=== PATIENT | male | born 1955 ===

== ENCOUNTER 2017-08-18 14:32 | Inpatient (IN) | payer MEDICAID ==
[2017-08-18 14:46] VITALS: BMI 24.3
[2017-08-18 15:39] LABS: BASO # 0.1 K/uL (0.0-0.2); BASO % 0.5 % (0.0-2.0); EOS # 0.1 K/uL (0.0-0.7); EOS % 0.7 % (0.0-4.0); HEMOGLOBIN 10.4 g/dL (12.0-18.0); LYMPH # 0.7 K/uL (1.0-4.3); MEAN CELL VOLUME 88.4 fL (80.0-94.0); MEAN CORPUSCULAR HEMOGLOBIN 30.1 pg (27.0-31.0); MEAN PLATELET VOLUME 7.1 fL (7.2-11.7); MONO # 0.6 K/uL (0.0-0.8); MONO % 5.4 % (0.0-10.0); NEUT % 87.4 % (50.0-75.0); RBC 3.47 Mil/uL (4.40-5.90); RED CELL DISTRIBUTION WIDTH 16.2 % (11.5-14.5)
[2017-08-18 15:40] LABS: WHITE BLOOD COUNT 11.5 K/uL (4.8-10.8)
[2017-08-18 15:41] LABS: PLATELET COUNT 348 K/uL (130-400)
[2017-08-18 15:48] LABS: INR 1.4; PROTHROMBIN TIME 15.4 SECONDS (9.7-12.2)
[2017-08-18 15:55] LABS: ALB/GLOB RATIO 1.3 (1.0-2.1); ALBUMIN 3.7 g/dL (3.5-5.0); ALT/SGPT 38 U/L (21-72); AST/SGOT 35 U/L (17-59); BLOOD UREA NITROGEN 15 mg/dL (9-20); CALCIUM 8.8 mg/dl (8.6-10.4); GFR AFRICAN-AMERICAN > 60; GFR NON-AFRICAN AMERICAN > 60
[2017-08-18] MEDS ORDERED: Sodium Chloride 0.9% 1,000 ML IV ONE (15:56)
--- NOTE | 2017-08-18 15:58 | RAD ---
HISTORY: SOB COMPARISON: Chest x-ray performed 05/05/13 TECHNIQUE: Chest, one view. FINDINGS: Examination limited by habitus and hypoinflation. LUNGS: Mild pulmonary venous congestion. No focal consolidation. Please note that chest x-ray has limited sensitivity for the detection of pulmonary masses. PLEURA: No significant pleural effusion identified. No definite pneumothorax . CARDIOVASCULAR: Median sternotomy wires with evidence of CABG. Heart size appears within normal limits. Dual lead left-sided AICD. OSSEOUS STRUCTURES: Osseous demineralization. Degenerative changes. VISUALIZED UPPER ABDOMEN: Unremarkable. OTHER FINDINGS: None. IMPRESSION: Mild pulmonary venous congestion. Hypoinflation. Left-sided AICD.
[2017-08-18 16:05] LABS: B-TYPE NATRIURETIC PEPTIDE 1570 pg/mL (0-900)
[2017-08-18] MEDS ORDERED: Sodium Chloride 0.9% 1,000 ML ONE (16:15)
[2017-08-18 16:20] LABS: ANISOCYTOSIS SLIGHT; EOSINOPHIL 1 % (0-4); HYPOCHROMIC SLIGHT; LYMPHOCYTE 6 % (20-40); MONOCYTE 6 % (0-10); NEUTROPHIL 87 % (50-75); PLATELET ESTIMATE NORMAL (NORMAL); POIKILOCYTOSIS SLIGHT; TOTAL CELLS COUNTED 100
[2017-08-18 16:21] LABS: BURR CELLS SLIGHT
--- NOTE | 2017-08-18 16:32 | C.PDOC ---
History Of Present Illness 62 y/o male presents to ED c/o parasthesia to both hands and feet for the last 2 days. Pt is s/p defibrillator placement at [facility] 10 days ago. Pt reports decrease in appetite, states last BM was 3 days ago. Notes taking Percocet for his chest wall discomfort. Denies headache, dizziness, fever, or any other complaints at this time. Time Seen by Provider: 08/18/17 14:43 Chief Complaint (Nursing): Weakness/Neurological Deficit History Per: Patient History/Exam Limitations: no limitations Past Medical History Reviewed: Historical Data, Nursing Documentation, Vital Signs Vital Signs: Last Vital Signs Temp 97.4 F L 08/18/17 14:39 Pulse 64 08/18/17 14:53 Resp 62 H 08/18/17 16:08 BP 112/56 L 08/18/17 16:08 Pulse Ox 100 08/18/17 17:37 - Medical History PMH: Benign Prostatic Hyperplasia, Diabetes, HTN, Hypercholesterolemia Family History: States: Unknown Family Hx - Social History Hx Tobacco Use: No Hx Alcohol Use: No Hx Substance Use: No - Immunization History Hx Tetanus Toxoid Vaccination: No Hx Influenza Vaccination: Yes Hx Pneumococcal Vaccination: No Review Of Systems Except As Marked, All Systems Reviewed And Found Negative. Constitutional: Negative for: Fever, Chills Cardiovascular: Negative for: Chest Pain, Palpitations Respiratory: Negative for: Cough, Shortness of Breath Gastrointestinal: Negative for: Nausea, Vomiting, Abdominal Pain, Diarrhea Genitourinary: Negative for: Dysuria, Frequency, Hematuria Neurological: Positive for: Other (parasthesia to both hands and feet). Negative for: Headache, Dizziness Physical Exam - Physical Exam Appears: Non-toxic, No Acute Distress Skin: Warm, Dry Head: Normacephalic Eye(s): bilateral: Normal Inspection Oral Mucosa: Moist Neck: Normal ROM, Supple Chest: Symmetrical, No Deformity, No Tenderness, No Ecchymosis, Other (healing wound to left upper chest wall, cardiac pacer in place, no fluctuance) Cardiovascular: Rhythm Regular Respiratory: Normal Breath Sounds, No Accessory Muscle Use, No Rales, No Rhonchi , No Wheezing Gastrointestinal/Abdominal: Soft, No Tenderness Extremity: Normal ROM Neurological/Psych: Oriented x3, Normal Speech, Normal Cognition ED Course And Treatment - Laboratory Results Result Diagrams: 08/18/17 15:35 02/23/18 17:02 Lab Interpretation: Abnormal (mild K+ elev) ECG: Interpreted By Me ECG Rhythm: Sinus Rhythm ECG Interpretation: Normal Rate From EC O2 Sat by Pulse Oximetry: 100 Pulse Ox Interpretation: Normal - Radiology CXR: Interpreted by Me CXR Interpretation: Yes: No Acute Disease, Other (good pacer/defib placement, no enlarged cardiac silhouette to suspect pericardial effusion) Progress Note: IV NS. 1630: repeat CMP ordered for inconsistent lab tests. suspect hemolyzed. Reevaluation Time: 16:45 Reassessment Condition: Improved - Physician Consult Information Outcome Of Conversation: 1500: d/w Dr. Forbes- recommends adm and will consult. 1645: d/w Dr. Rafiq Grover- PMD- ok to admit Medical Decision Making Medical Decision Making: mild hyponatremia no neurological defect but may be causing mild ataxia vs weakness of legs. consider poor PO intake and diuretics as causative no sig EKG changes, will await repeat CMP prior to treatment. LOW susp of symptomatic pericardial effusion, Dr. Forbes recommends routine card echo 1730: only mild hyponatremia on repeat CMP, Na improving. Defer treatment of hyperkalemia for normal EKG and only slightly elev K+ Follow as inpt. Disposition Doctor Will See Patient In The: Hospital Counseled Patient/Family Regarding: Studies Performed, Diagnosis - Disposition Disposition: HOSPITALIZED Disposition Time: 16:47 Condition: GOOD - Clinical Impression Clinical Impression: Muscle weakness, Hyponatremia, Hyperkalemia - Scribe Statement The provider has reviewed the documentation as recorded by the Logan Grover All medical record entries made by the Logan were at my direction and personally dictated by me. I have reviewed the chart and agree that the record accurately reflects my personal performance of the history, physical exam, medical decision making, and the department course for this patient. I have also personally directed, reviewed, and agree with the discharge instructions and disposition.
[2017-08-18 17:09] LABS: SQUAMOUS EPITHIAL < 1 /hpf (0-5); URINE BILIRUBIN NEGATIVE (NEGATIVE); URINE BLOOD NEGATIVE (NEGATIVE); URINE CLARITY Clear (Clear); URINE COLOR Yellow (YELLOW); URINE GLUCOSE (UA) NORMAL (Normal); URINE LEUKOCYTE ESTERASE NEG Leu/uL (Negative); URINE NITRATE NEGATIVE (NEGATIVE); URINE PROTEIN NEGATIVE (NEGATIVE); URINE UROBILINOGEN NORMAL mg/dL (0.2-1.0)
[2017-08-18 17:25] LABS: ALB/GLOB RATIO 1.2 (1.0-2.1); ALBUMIN 3.3 g/dL (3.5-5.0); ALT/SGPT 37 U/L (21-72); AST/SGOT 34 U/L (17-59); BLOOD UREA NITROGEN 14 mg/dL (9-20); CALCIUM 8.3 mg/dl (8.6-10.4); GFR AFRICAN-AMERICAN > 60; GFR NON-AFRICAN AMERICAN > 60
[2017-08-18] MEDS: Ranolazine 500 mg Extended Release Tablets PO SCH (20:32)
--- NOTE | 2017-08-18 21:50 | CT ---
EXAM: CT Abdomen and Pelvis Without Intravenous Contrast EXAM DATE/TIME: 08/18/2017 8:12 PM CLINICAL HISTORY: 62 years old, male; Pain; Abdominal pain; Generalized; Additional info: Abd pain /black stools TECHNIQUE: Axial computed tomography images of the abdomen and pelvis without intravenous contrast. All CT scans at this facility use one or more dose reduction techniques, viz.: automated exposure control; ma/kV adjustment per patient size (including targeted exams where dose is matched to indication; i.e. head); or iterative reconstruction technique. Coronal and sagittal reformatted images were created and reviewed. COMPARISON: There are no prior studies for comparison. FINDINGS: Artifacts: Streak artifact degrades image quality.Motion artifact degrades image quality. Lower thorax: The heart is mildly enlarged. There are coronary artery calcifications and/or stents.There is streak artifact from pacemaker leads. There is dependent atelectasis and scarring at the lung bases. There is mild distal esophageal wall thickening. ABDOMEN: Liver: unremarkable Gallbladder and bile ducts: unremarkable Pancreas: Pancreas is mildly atrophic. Spleen: unremarkable Adrenals: unremarkable Kidneys and ureters: There there is small bilateral nonobstructing renal stones. There is bilateral pelvocaliectasis and ureterectasis. Stomach and bowel: Stomach is partially distended with an air-fluid level. Rotation is normal. There is no small bowel obstruction. Ileocecal region is unremarkable. Appendix and terminal ileum are unremarkable.Moderate stool in the colon. Appendix: See stomach and bowel PELVIS: Bladder: Bladder is markedly distended. Normal the bladder extends above the level of the umbilicus. There is a small amount of air in the bladder Reproductive: Prostate is enlarged. Seminal vesicles are unremarkable. ABDOMEN and PELVIS: Intraperitoneal space: There is no free air or free fluid. Bones/joints: Median sternotomy There are anterior rib fractures bilaterally. Soft tissues: There is a very small fat containing umbilical hernia. There is a 2 x 2.2 by 4 cm cystic lesion in the left upper quadrant. Vasculature: There are calcified phleboliths. There are vascular calcifications. Lymph nodes: unremarkable IMPRESSION: Cardiomegaly, atherosclerotic disease and pacemaker;markedly distended bladder, bilateral hydroureteronephrosis most likely due to bladder distention; minimal air in the bladder infection versus iatrogenic; left upper quadrant mesenteric cyst; no acute bowel abnormality Additional nonemergent findings as described above.
[2017-08-18] MEDS: (Novolin R) Insulin Human Regular 100 units/ml vial SC SCH (22:41)
[2017-08-18] MEDS: (Lantus) Insulin Glargine, Recombinant SC SCH ×2 (22:47→22:49)
--- NOTE | 2017-08-19 05:35 | HP ---
HISTORY OF PRESENT ILLNESS: This is a 62-year-old [place] male, came to the emergency room with history of paresthesias to both hands and feet for the last two days. The patient has recently implanted defibrillator at [facility] about 10 days ago. The patient reports decrease in appetite and state last bowel movement was 3 days ago. The patient is taking Percocet for his chest pain. The patient denies having headache, dizziness, fever, or any other complaints. The patient also has probable no urine for the last 24 hours. REVIEW OF SYSTEMS: CARDIOVASCULAR: Negative for chest pain or shortness of breath. RESPIRATORY: Negative for shortness of breath. GI: The patient has nausea and possible vomiting in the morning prior to the admission, constipation, and abdominal discomfort. GAME ADVISOR: No focal neurological complaints offered. The patient has paresthesias of both hands and feet. : Urinary complaints, possible reduced urine output. GENERAL: No history of back pain. No fever. PSYCHIATRIC: The patient is stable. All other system is negative. PAST MEDICAL HISTORY: History of benign prostatic hyperplasia, diabetes, hypertension, hypercholesterolemia. The patient has severe coronary artery disease. The patient has multiple angiogram done. The patient also has history of cardiac arrest and has been revived. The patient recently has stent catheterization at [facility]. Later on, the patient has implantation of ICD. The patient has been to multiple hospitals like [facility], and [facility], and [facility] for the similar problem with heart. MEDICATIONS: The patient has to take nitroglycerin constantly because of his chest pain off and on. Basically, the patient has severe coronary artery disease with low ejection fraction. The patient's medications are reviewed by me. FAMILY HISTORY: No known inherited disease. ALLERGIES: NO KNOWN ALLERGIES. SOCIAL HISTORY: Nonsmoker. Nonalcoholic. No IVDA. PHYSICAL EXAMINATION: GENERAL: This is a 62-year-old [place] male awake, alert with abdominal discomfort. VITAL SIGNS: Temperature 97.4, pulse 64, respirations , blood pressure 112/56 mmHg, pulse oximetry is 100% at room air. HEENT: Normal. JVP is flat. Carotids no bruits. LUNGS: No rales. No wheezing. HEART: S1 and S2 normal. No gallop. No murmur. ABDOMEN: Soft and nontender. No organomegaly. GAME ADVISOR: No focal neurological deficit. No edema of the legs. LABORATORY DATA: On admission, EKG is grossly within normal limits. Dr. Forbes was consulted by the Emergency Room for this problem, and he advised the patient to be admitted so I was notified. I agreed with Dr. Forbes's decision to admit the patient. The patient has mild hyponatremia and hyperkalemia. The patient is also getting unsteady gait because of electrolyte imbalance. IMPRESSION: Muscle weakness, hyponatremia, hyperkalemia. Severe coronary artery disease with multiple manipulations. Stent and the patient also has ICD implanted. PLAN: The patient will be admitted to telemetry bed. We will get consult with Dr. Forbes. We will continue all the medications. Other workup as needed. Sheyla Grover MD
--- NOTE | 2017-08-19 08:59 | CP.PCM.CON ---
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 The patient is primarily Abdulaziz speaking, thus [employer] Abdulaziz rip sawyer #[id number] was used to assist with history and physical examination. The patient states that he underwent ICD placement at [facility] 10 days prior to arrival and was discharged with new medication, Brilinta 90mg tablets. Two to three days after returning home he began to note dizziness with exertion, unsteady gain, had dark black bowel movements and needed to use excessive force to urinate. Regarding his bowel habits, he passed one formed, dark black bowel movement daily for several days prior to admission. Denies any bright red hematochezia/hematemesis/hematuria or bleeding from his recent surgical site. Has no palpitations, nausea, vomiting, abdominal pain, NSAID use, heartburn. No prior endoscopic evaluations. PMHx: See HPI PSHx: CABGx1 2001, Coronary angioplasty 2004, PCI + CHANO multiple times previously, most recent 1 year ago, ICD insertion 10 days ago FHx: Discussed with patient and denies any significant family history Social: Denies tobacco, EtOH or illicit drug use Endo: No prior endoscopic procedures 12 system ROS performed and negative except where stated above. Past Patient History - Past Social History Smoking Status: Never Smoked - CARDIAC Hx Hypercholesterolemia: Yes Hx Hypertension: Yes - PSYCHIATRIC Hx Substance Use: No - SURGICAL HISTORY Hx Vascular Surgery: Yes (AICD) - ANESTHESIA Hx Anesthesia: Yes Hx Anesthesia Reactions: No Hx Malignant Hyperthermia: No Meds Allergies/Adverse Reactions: Allergies Allergy/AdvReac Type Severity Reaction Status Date / Time No Known Allergies Allergy Unverified 05/05/13 10:28 - Medications Medications: Current Medications Amiodarone HCl (Cordarone) 200 mg PO Q12 [facility] Last Admin: 08/18/17 22:53 Dose: 200 mg Carvedilol (Coreg) 12.5 mg PO Q12 [facility] Last Admin: 08/18/17 22:53 Dose: 12.5 mg Enalapril Maleate (Vasotec) 10 mg PO DAILY [facility] Famotidine (Pepcid) 20 mg PO DAILY [facility] Finasteride (Proscar) 5 mg PO DAILY [facility] Gabapentin (Neurontin) 100 mg PO BID [facility] Last Admin: 08/18/17 20:32 Dose: 100 mg Insulin Glargine (Lantus) 12 unit SC [facility] Last Admin: 08/18/17 22:47 Dose: Not Given Insulin Glargine (Lantus) 40 unit SC [facility] Last Admin: 08/18/17 22:49 Dose: Not Given Insulin Human Regular (Novolin R) 0 unit SC [facility] PRN Reason: Protocol Last Admin: 08/18/17 22:41 Dose: Not Given Nitroglycerin (Nitrostat Sl Tab) 0.4 mg SL Q4H PRN PRN Reason: chest pain Ondansetron HCl (Zofran Inj) 4 mg IVP Q6 PRN PRN Reason: Nausea/Vomiting Last Admin: 08/18/17 21:41 Dose: 4 mg Ranolazine (Ranexa) 1,000 mg PO BID [facility] Last Admin: 08/18/17 20:32 Dose: 1,000 mg Rosuvastatin Calcium (Crestor) 40 mg PO [facility] Sitagliptin Phosphate (Januvia) 50 mg PO BID [facility] Spironolactone (Aldactone) 25 mg PO BID [facility] Last Admin: 08/18/17 20:32 Dose: 25 mg Tamsulosin HCl (Flomax) 0.4 mg PO DAILY [facility] Physical Exam - Constitutional Appears: Non-toxic, No Acute Distress - Eye Exam Eye Exam: EOMI, PERRL - ENT Exam ENT Exam: Mucous Membranes Moist - Respiratory Exam Respiratory Exam: Clear to Auscultation Bilateral. absent: Rales, Rhonchi, Wheezes - Cardiovascular Exam Cardiovascular Exam: Bradycardia, +S1, +S2 - GI/Abdominal Exam GI & Abdominal Exam: Distended, Firm (suprapubic), Normal Bowel Sounds, Soft. absent: Hernia, Mass, Organomegaly, Rigid, Tenderness - Rectal Exam Additional comments: formed brown stool, no blood, no hemorrhoids - Extremities Exam Extremities exam: Positive for: normal inspection. Negative for: pedal edema - Neurological Exam Neurological exam: Alert, Oriented x3 - Psychiatric Exam Psychiatric exam: Normal Affect, Normal Mood - Skin Skin Exam: Dry, Warm Results - Vital Signs Recent Vital Signs: Last Vital Signs Temp 98.1 F 08/19/17 04:00 Pulse 60 08/19/17 07:55 Resp 18 08/19/17 07:55 BP 127/66 08/19/17 07:55 Pulse Ox 99 08/19/17 07:55 - Labs Result Diagrams: 08/18/17 15:35 08/18/17 17:02 Labs: Laboratory Results - last 24 hr 08/18/17 08/18/17 08/18/17 14:47 15:35 15:35 WBC 11.5 H D RBC 3.47 L Hgb 10.4 L Hct 30.7 L MCV 88.4 MCH 30.1 MCHC 34.0 RDW 16.2 H Plt Count 348 D MPV 7.1 L Neut % (Auto) 87.4 H Lymph % (Auto) 6.0 L Cedar % (Auto) 5.4 Eos % (Auto) 0.7 Baso % (Auto) 0.5 Neut # (Auto) 10.0 H Lymph # (Auto) 0.7 L Cedar # (Auto) 0.6 Eos # (Auto) 0.1 Baso # (Auto) 0.1 Neutrophils % (Manual) 87 H Lymphocytes % (Manual) 6 L Monocytes % (Manual) 6 Eosinophils % (Manual) 1 Platelet Estimate Normal Hypochromasia (manual) Slight Poikilocytosis (manual Slight Anisocytosis (manual) Slight Charles Cells Slight PT 15.4 H INR 1.4 APTT 26 D-Dimer, Quantitative 719 H Sodium Potassium Chloride Carbon Dioxide Anion Gap BUN Creatinine Est GFR ( Amer) Est GFR (Non-Af Amer) POC Glucose (mg/dL) 142 H Random Glucose Calcium Total Bilirubin AST ALT Alkaline Phosphatase Troponin I NT-Pro-B Natriuret Pep Total Protein Albumin Globulin Albumin/Globulin Ratio Urine Color Urine Clarity Urine pH Ur Specific Webster Urine Protein Urine Glucose (UA) Urine Ketones Urine Blood Urine Nitrate Urine Bilirubin Urine Urobilinogen Ur Leukocyte Esterase Urine WBC (Auto) Urine RBC (Auto) Ur Squamous Epith Cells Stool Occult Blood 08/18/17 08/18/17 08/18/17 15:35 16:59 17:02 WBC RBC Hgb Hct MCV MCH MCHC RDW Plt Count MPV Neut % (Auto) Lymph % (Auto) Cedar % (Auto) Eos % (Auto) Baso % (Auto) Neut # (Auto) Lymph # (Auto) Cedar # (Auto) Eos # (Auto) Baso # (Auto) Neutrophils % (Manual) Lymphocytes % (Manual) Monocytes % (Manual) Eosinophils % (Manual) Platelet Estimate Hypochromasia (manual) Poikilocytosis (manual Anisocytosis (manual) Exira Cells PT INR APTT D-Dimer, Quantitative Sodium 126 L 127 L Potassium 6.1 H 5.4 H Chloride 92 L 96 L Carbon Dioxide 23 21 L Anion Gap 17 15 BUN 15 14 Creatinine 1.0 0.9 Est GFR ( Amer) > 60 > 60 Est GFR (Non-Af Amer) > 60 > 60 POC Glucose (mg/dL) Random Glucose 135 H 109 Calcium 8.8 8.3 L Total Bilirubin 1.0 0.9 AST 35 34 ALT 38 37 Alkaline Phosphatase 91 89 Troponin I 0.0590 NT-Pro-B Natriuret Pep 1570 H Total Protein 6.5 5.9 L Albumin 3.7 3.3 L Globulin 2.8 2.7 Albumin/Globulin Ratio 1.3 1.2 Urine Color Yellow Urine Clarity Clear Urine pH 5.0 Ur Specific Webster 1.012 Urine Protein Negative Urine Glucose (UA) Normal Urine Ketones Negative Urine Blood Negative Urine Nitrate Negative Urine Bilirubin Negative Urine Urobilinogen Normal Ur Leukocyte Esterase Neg Urine WBC (Auto) 1 Urine RBC (Auto) < 1 Ur Squamous Epith Cells < 1 Stool Occult Blood 08/18/17 08/18/17 08/18/17 20:28 20:47 22:35 WBC RBC Hgb Hct MCV MCH MCHC RDW Plt Count MPV Neut % (Auto) Lymph % (Auto) Cedar % (Auto) Eos % (Auto) Baso % (Auto) Neut # (Auto) Lymph # (Auto) Cedar # (Auto) Eos # (Auto) Baso # (Auto) Neutrophils % (Manual) Lymphocytes % (Manual) Monocytes % (Manual) Eosinophils % (Manual) Platelet Estimate Hypochromasia (manual) Poikilocytosis (manual Anisocytosis (manual) Exira Cells PT INR APTT D-Dimer, Quantitative Sodium Potassium Chloride Carbon Dioxide Anion Gap BUN Creatinine Est GFR ( Amer) Est GFR (Non-Af Amer) POC Glucose (mg/dL) 88 153 H Random Glucose Calcium Total Bilirubin AST ALT Alkaline Phosphatase Troponin I NT-Pro-B Natriuret Pep Total Protein Albumin Globulin Albumin/Globulin Ratio Urine Color Urine Clarity Urine pH Ur Specific Webster Urine Protein Urine Glucose (UA) Urine Ketones Urine Blood Urine Nitrate Urine Bilirubin Urine Urobilinogen Ur Leukocyte Esterase Urine WBC (Auto) Urine RBC (Auto) Ur Squamous Epith Cells Stool Occult Blood Negative Assessment & Plan - Assessment and Plan (Free Text) Assessment: Patient is a 62yo male with PMHx significant for severe CAD with prior arrest s/ p CABGx1, 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, 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, DM, dyslipidemia who presented to the ED with multiple complaints including dizziness, difficulty urinating, paresthesias in his hands/feet and dark stool for roughly one week -Chronic normocytic anemia -1st degree AV block with QT prolongation -Dizziness, possibly symptomatic bradycardia -Abdominal pain likely a result of distended bladder 2/2 BPH Plan: -Rectal exam with brown, formed stool noted -No evidence of melena at this time, or since admission - FOBT was negative -Suggest continuation of Brilinta/ASA as indicated if needed by cardiology -Dizziness likely a result of symptomatic bradycardia - current HR 58 with some dizziness which worsened with exertion -Work up of chronic anemia - suggest iron panel, TIBC, ferritin -CT A/P reviewed - distal esophageal thickening noted; constipation and significantly distended bladder -Consider capellan catherization to relieve bladder distention/discomfort -Would benefit from EGD/Colonoscopy due to anemia -Appreciate cardiology recommendations - Date & Time Date: 08/19/17 Time: 08:00 <Kun Peterson - Last Filed: 08/19/17 10:39> Meds - Medications Medications: Current Medications Amiodarone HCl (Cordarone) 200 mg PO Q12 [facility] Last Admin: 08/18/17 22:53 Dose: 200 mg Carvedilol (Coreg) 12.5 mg PO Q12 [facility] Last Admin: 08/18/17 22:53 Dose: 12.5 mg Enalapril Maleate (Vasotec) 10 mg PO DAILY [facility] Famotidine (Pepcid) 20 mg PO DAILY [facility] Finasteride (Proscar) 5 mg PO DAILY [facility] Gabapentin (Neurontin) 100 mg PO BID [facility] Last Admin: 08/18/17 20:32 Dose: 100 mg Insulin Glargine (Lantus) 12 unit SC [facility] Last Admin: 08/18/17 22:47 Dose: Not Given Insulin Glargine (Lantus) 40 unit SC [facility] Last Admin: 08/18/17 22:49 Dose: Not Given Insulin Human Regular (Novolin R) 0 unit SC [facility] PRN Reason: Protocol Last Admin: 08/18/17 22:41 Dose: Not Given Nitroglycerin (Nitrostat Sl Tab) 0.4 mg SL Q4H PRN PRN Reason: chest pain Ranolazine (Ranexa) 1,000 mg PO BID [facility] Last Admin: 08/18/17 20:32 Dose: 1,000 mg Rosuvastatin Calcium (Crestor) 40 mg PO [facility] Sitagliptin Phosphate (Januvia) 50 mg PO BID [facility] Spironolactone (Aldactone) 25 mg PO BID [facility] Last Admin: 08/18/17 20:32 Dose: 25 mg Tamsulosin HCl (Flomax) 0.4 mg PO DAILY [facility] Ticagrelor (Brilinta) 90 mg PO BID [facility] Results - Vital Signs Recent Vital Signs: Last Vital Signs Temp 98.1 F 08/19/17 04:00 Pulse 62 08/19/17 10:25 Resp 20 08/19/17 10:25 BP 136/66 08/19/17 10:25 Pulse Ox 99 08/19/17 10:25 - Labs Result Diagrams: 08/18/17 15:35 08/18/17 17:02 Labs: Laboratory Results - last 24 hr 08/18/17 08/18/17 08/18/17 14:47 15:35 15:35 WBC 11.5 H D RBC 3.47 L Hgb 10.4 L Hct 30.7 L MCV 88.4 MCH 30.1 MCHC 34.0 RDW 16.2 H Plt Count 348 D MPV 7.1 L Neut % (Auto) 87.4 H Lymph % (Auto) 6.0 L Cedar % (Auto) 5.4 Eos % (Auto) 0.7 Baso % (Auto) 0.5 Neut # (Auto) 10.0 H Lymph # (Auto) 0.7 L Cedar # (Auto) 0.6 Eos # (Auto) 0.1 Baso # (Auto) 0.1 Neutrophils % (Manual) 87 H Lymphocytes % (Manual) 6 L Monocytes % (Manual) 6 Eosinophils % (Manual) 1 Platelet Estimate Normal Hypochromasia (manual) Slight Poikilocytosis (manual Slight Anisocytosis (manual) Slight Exira Cells Slight PT 15.4 H INR 1.4 APTT 26 D-Dimer, Quantitative 719 H Sodium Potassium Chloride Carbon Dioxide Anion Gap BUN Creatinine Est GFR ( Amer) Est GFR (Non-Af Amer) POC Glucose (mg/dL) 142 H Random Glucose Calcium Total Bilirubin AST ALT Alkaline Phosphatase Troponin I NT-Pro-B Natriuret Pep Total Protein Albumin Globulin Albumin/Globulin Ratio Urine Color Urine Clarity Urine pH Ur Specific Webster Urine Protein Urine Glucose (UA) Urine Ketones Urine Blood Urine Nitrate Urine Bilirubin Urine Urobilinogen Ur Leukocyte Esterase Urine WBC (Auto) Urine RBC (Auto) Ur Squamous Epith Cells Stool Occult Blood 08/18/17 08/18/17 08/18/17 15:35 16:59 17:02 WBC RBC Hgb Hct MCV MCH MCHC RDW Plt Count MPV Neut % (Auto) Lymph % (Auto) Cedar % (Auto) Eos % (Auto) Baso % (Auto) Neut # (Auto) Lymph # (Auto) Cedar # (Auto) Eos # (Auto) Baso # (Auto) Neutrophils % (Manual) Lymphocytes % (Manual) Monocytes % (Manual) Eosinophils % (Manual) Platelet Estimate Hypochromasia (manual) Poikilocytosis (manual Anisocytosis (manual) Charles Cells PT INR APTT D-Dimer, Quantitative Sodium 126 L 127 L Potassium 6.1 H 5.4 H Chloride 92 L 96 L Carbon Dioxide 23 21 L Anion Gap 17 15 BUN 15 14 Creatinine 1.0 0.9 Est GFR ( Amer) > 60 > 60 Est GFR (Non-Af Amer) > 60 > 60 POC Glucose (mg/dL) Random Glucose 135 H 109 Calcium 8.8 8.3 L Total Bilirubin 1.0 0.9 AST 35 34 ALT 38 37 Alkaline Phosphatase 91 89 Troponin I 0.0590 NT-Pro-B Natriuret Pep 1570 H Total Protein 6.5 5.9 L Albumin 3.7 3.3 L Globulin 2.8 2.7 Albumin/Globulin Ratio 1.3 1.2 Urine Color Yellow Urine Clarity Clear Urine pH 5.0 Ur Specific Webster 1.012 Urine Protein Negative Urine Glucose (UA) Normal Urine Ketones Negative Urine Blood Negative Urine Nitrate Negative Urine Bilirubin Negative Urine Urobilinogen Normal Ur Leukocyte Esterase Neg Urine WBC (Auto) 1 Urine RBC (Auto) < 1 Ur Squamous Epith Cells < 1 Stool Occult Blood 08/18/17 08/18/17 08/18/17 20:28 20:47 22:35 WBC RBC Hgb Hct MCV MCH MCHC RDW Plt Count MPV Neut % (Auto) Lymph % (Auto) Cedar % (Auto) Eos % (Auto) Baso % (Auto) Neut # (Auto) Lymph # (Auto) Cedar # (Auto) Eos # (Auto) Baso # (Auto) Neutrophils % (Manual) Lymphocytes % (Manual) Monocytes % (Manual) Eosinophils % (Manual) Platelet Estimate Hypochromasia (manual) Poikilocytosis (manual Anisocytosis (manual) Charles Cells PT INR APTT D-Dimer, Quantitative Sodium Potassium Chloride Carbon Dioxide Anion Gap BUN Creatinine Est GFR ( Amer) Est GFR (Non-Af Amer) POC Glucose (mg/dL) 88 153 H Random Glucose Calcium Total Bilirubin AST ALT Alkaline Phosphatase Troponin I NT-Pro-B Natriuret Pep Total Protein Albumin Globulin Albumin/Globulin Ratio Urine Color Urine Clarity Urine pH Ur Specific Webster Urine Protein Urine Glucose (UA) Urine Ketones Urine Blood Urine Nitrate Urine Bilirubin Urine Urobilinogen Ur Leukocyte Esterase Urine WBC (Auto) Urine RBC (Auto) Ur Squamous Epith Cells Stool Occult Blood Negative Attending/Attestation - Attestation I have personally seen and examined this patient.: Yes I have fully participated in the care of the patient.: Yes I have reviewed all pertinent clinical information: Yes Notes (Text): 08/19/17 10:28 I have seen and examined patient with GI fellow. Agree with above documentation with the following additions. In brief, this is a 62 year old male with history of CAD/CABG s/p stent on Brilinta, recent ICD placement at [place], HTN, DM, BPH who presents to hospital with complaint of dizziness, difficulty urinating, and dark colored stool for the past one week. He describes extreme dizziness and vertigo at minimal exertion. He also reports difficulty urinating despite taking BPH medication and reports requiring urinary capellan catherization twice at [place] recently. GI called for evaluation of dark colored stool which patient claims to have been having a few days ago which has now resolved. He does report suprapubic abdominal discomfort but denies nausea, vomiting, fever/chills, weight loss. No prior endoscopic evaluation. Review of vitals from today shows bradycardia. CAD/CABG s/p stent on brilinta HTN DM BPH, urinary retention Anemia - Diet as tolerated - H/H stable, continue to monitor - Rectal examination performed shows formed brown stool in rectal vault, no palpable lesions - CT imaging reviewed by me showing distended urinary bladder. Given patient complaints, suggest urology evaluation and consideration of repeat capellan placement. - Follow up cardiology recommendations regarding ongoing dizziness - Obtain iron panel - Patient would benefit from elective outpatient EGD/colonoscopy for workup of anemia following resolution of acute cardiac issues. Office contact information provided to patient. Currently no planned intervention, will sign off case. Please reconsult as necessary, thank you.
--- NOTE | 2017-08-19 11:04 | CP.PCM.PN ---
Subjective - Date & Time of Evaluation Date of Evaluation: 08/19/17 Time of Evaluation: 11:01 - Subjective Subjective: PT HAD BLACK STOOLS. OCCULT BLOOD NEG. GI EVAL NOTED. HAS URINARY RETENTION. NO CHEST PAIN. VS WNL. Objective - Vital Signs/Intake and Output Vital Signs (last 24 hours): Temp Pulse Resp BP Pulse Ox 98.1 F 62 20 136/66 99 08/19/17 04:00 08/19/17 10:25 08/19/17 10:25 08/19/17 10:25 08/19/17 10:25 Intake and Output: 08/19/17 08/19/17 06:59 18:59 Output Total 200 Balance -200 - Medications Medications: Current Medications Amiodarone HCl (Cordarone) 200 mg PO Q12 [facility] Last Admin: 08/18/17 22:53 Dose: 200 mg Carvedilol (Coreg) 12.5 mg PO Q12 [facility] Last Admin: 08/18/17 22:53 Dose: 12.5 mg Enalapril Maleate (Vasotec) 10 mg PO DAILY [facility] Famotidine (Pepcid) 20 mg PO DAILY [facility] Finasteride (Proscar) 5 mg PO DAILY [facility] Gabapentin (Neurontin) 100 mg PO BID [facility] Last Admin: 08/18/17 20:32 Dose: 100 mg Insulin Glargine (Lantus) 12 unit SC HS [facility] Last Admin: 08/18/17 22:47 Dose: Not Given Insulin Glargine (Lantus) 40 unit SC [facility] Last Admin: 08/18/17 22:49 Dose: Not Given Insulin Human Regular (Novolin R) 0 unit SC [facility] PRN Reason: Protocol Last Admin: 08/18/17 22:41 Dose: Not Given Nitroglycerin (Nitrostat Sl Tab) 0.4 mg SL Q4H PRN PRN Reason: chest pain Ranolazine (Ranexa) 1,000 mg PO BID [facility] Last Admin: 08/18/17 20:32 Dose: 1,000 mg Rosuvastatin Calcium (Crestor) 40 mg PO HS [facility] Sitagliptin Phosphate (Januvia) 50 mg PO BID [facility] Spironolactone (Aldactone) 25 mg PO BID [facility] Last Admin: 08/18/17 20:32 Dose: 25 mg Tamsulosin HCl (Flomax) 0.4 mg PO DAILY [facility] Ticagrelor (Brilinta) 90 mg PO BID [facility] - Labs Labs: 08/18/17 15:35 08/18/17 17:02 PT 15.4 SECONDS (9.7-12.2) H 08/18/17 15:35 INR 1.4 08/18/17 15:35 APTT 26 SECONDS (21-34) 08/18/17 15:35 - Constitutional Appears: No Acute Distress, Chronically Ill - Eye Exam Eye Exam: Normal appearance, PERRL - ENT Exam ENT Exam: Normal Exam - Respiratory Exam Respiratory Exam: Clear to Ausculation Bilateral, NORMAL BREATHING PATTERN - Cardiovascular Exam Cardiovascular Exam: REGULAR RHYTHM, +S1, +S2 - GI/Abdominal Exam GI & Abdominal Exam: Soft, Tenderness, Normal Bowel Sounds - Extremities Exam Extremities Exam: Full ROM, Normal Capillary Refill, Normal Inspection. absent : Joint Swelling, Pedal Edema - Neurological Exam Neurological Exam: Alert, Awake, CN II-XII Intact, Normal Gait, Oriented x3 - Psychiatric Exam Psychiatric exam: Normal Affect, Normal Mood Assessment and Plan - Assessment and Plan (Free Text) Assessment: CAD. RETENTION OF URINE. ELECTROLYTE IMBALANCE. Plan: PER ORDER.
[2017-08-19] MEDS: Ranolazine 500 mg Extended Release Tablets PO SCH ×2 (11:29→19:09)
[2017-08-19] MEDS: (Novolin R) Insulin Human Regular 100 units/ml vial SC SCH ×3 (11:31→19:09)
[2017-08-19] MEDS ORDERED: (Novolin R) Insulin Human Regular 100 units/ml vial ONE (12:58)
[2017-08-19 13:21] LABS: URINE BACTERIA RARE (<OCC); URINE BILIRUBIN NEGATIVE (NEGATIVE); URINE BLOOD NEGATIVE (NEGATIVE); URINE CLARITY Clear (Clear); URINE COLOR Yellow (YELLOW); URINE GLUCOSE (UA) 1+ mg/dL (Normal); URINE LEUKOCYTE ESTERASE NEG Leu/uL (Negative); URINE NITRATE NEGATIVE (NEGATIVE); URINE PROTEIN 1+ mg/dL (NEGATIVE); URINE UROBILINOGEN NORMAL mg/dL (0.2-1.0)
--- NOTE | 2017-08-19 14:14 | CP.PCM.PN ---
Subjective - Date & Time of Evaluation Date of Evaluation: 08/19/17 Time of Evaluation: 14:08 - Subjective Subjective: 62 year old kyrgyz male known diabetic with multiple med problems.pt has a implanted pacemaker. CT showed massivly distended bladder,capellan cath has been placed, urine c%s has nidia drawn. ct also shows a enlarged prostate. A urinary retention due to bph and possible diabetic neurogenic bladder,R/o Cap suggest leave capellan await C&s get psa will schedule pt for cystoscopy monday if cleared and culture is neg, Wesley Objective - Vital Signs/Intake and Output Vital Signs (last 24 hours): Temp Pulse Resp BP Pulse Ox 98.1 F 62 20 138/69 99 08/19/17 04:00 08/19/17 10:25 08/19/17 10:25 08/19/17 11:32 08/19/17 10:25 Intake and Output: 08/19/17 08/19/17 06:59 18:59 Output Total 200 2500 Balance -200 -2500 - Medications Medications: Current Medications Amiodarone HCl (Cordarone) 200 mg PO Q12 [facility] Last Admin: 08/19/17 11:29 Dose: 200 mg Carvedilol (Coreg) 12.5 mg PO Q12 [facility] Last Admin: 08/19/17 11:29 Dose: 12.5 mg Enalapril Maleate (Vasotec) 10 mg PO DAILY [facility] Last Admin: 08/19/17 11:32 Dose: 10 mg Famotidine (Pepcid) 20 mg PO DAILY [facility] Last Admin: 08/19/17 11:32 Dose: 20 mg Finasteride (Proscar) 5 mg PO DAILY [facility] Last Admin: 08/19/17 11:32 Dose: 5 mg Gabapentin (Neurontin) 100 mg PO BID [facility] Last Admin: 08/19/17 11:29 Dose: 100 mg Insulin Glargine (Lantus) 12 unit SC HS [facility] Last Admin: 08/18/17 22:47 Dose: Not Given Insulin Glargine (Lantus) 40 unit SC HS [facility] Last Admin: 08/18/17 22:49 Dose: Not Given Insulin Human Regular (Novolin R) 0 unit SC [facility] PRN Reason: Protocol Last Admin: 08/19/17 13:17 Dose: 1 unit Nitroglycerin (Nitrostat Sl Tab) 0.4 mg SL Q4H PRN PRN Reason: chest pain Ranolazine (Ranexa) 1,000 mg PO BID [facility] Last Admin: 08/19/17 11:29 Dose: 1,000 mg Rosuvastatin Calcium (Crestor) 40 mg PO HS [facility] Last Admin: 08/19/17 11:32 Dose: Not Given Sitagliptin Phosphate (Januvia) 50 mg PO BID [facility] Last Admin: 08/19/17 11:32 Dose: 50 mg Spironolactone (Aldactone) 25 mg PO BID [facility] Last Admin: 08/19/17 11:28 Dose: 25 mg Tamsulosin HCl (Flomax) 0.4 mg PO DAILY [facility] Last Admin: 08/19/17 11:32 Dose: 0.4 mg Ticagrelor (Brilinta) 90 mg PO BID [facility] Last Admin: 08/19/17 11:32 Dose: 90 mg - Labs Labs: 08/18/17 15:35 08/18/17 17:02 PT 15.4 SECONDS (9.7-12.2) H 08/18/17 15:35 INR 1.4 08/18/17 15:35 APTT 26 SECONDS (21-34) 08/18/17 15:35
--- NOTE | 2017-08-19 16:30 | CP.PCM.CON ---
History of Present Illness - History of Present Illness History of Present Illness: pt is seen and examined,full consult is dictated #[id number] Past Patient History - Past Social History Smoking Status: Never Smoked - CARDIAC Hx Hypercholesterolemia: Yes Hx Hypertension: Yes - PSYCHIATRIC Hx Substance Use: No - SURGICAL HISTORY Hx Vascular Surgery: Yes (AICD) - ANESTHESIA Hx Anesthesia: Yes Hx Anesthesia Reactions: No Hx Malignant Hyperthermia: No Meds Allergies/Adverse Reactions: Allergies Allergy/AdvReac Type Severity Reaction Status Date / Time No Known Allergies Allergy Unverified 05/05/13 10:28 - Medications Medications: Current Medications Amiodarone HCl (Cordarone) 200 mg PO Q12 [facility] Last Admin: 08/19/17 11:29 Dose: 200 mg Carvedilol (Coreg) 12.5 mg PO Q12 [facility] Last Admin: 08/19/17 11:29 Dose: 12.5 mg Enalapril Maleate (Vasotec) 10 mg PO DAILY [facility] Last Admin: 08/19/17 11:32 Dose: 10 mg Famotidine (Pepcid) 20 mg PO DAILY [facility] Last Admin: 08/19/17 11:32 Dose: 20 mg Finasteride (Proscar) 5 mg PO DAILY [facility] Last Admin: 08/19/17 11:32 Dose: 5 mg Gabapentin (Neurontin) 100 mg PO BID [facility] Last Admin: 08/19/17 11:29 Dose: 100 mg Insulin Glargine (Lantus) 12 unit SC HS [facility] Last Admin: 08/18/17 22:47 Dose: Not Given Insulin Glargine (Lantus) 40 unit SC HS [facility] Last Admin: 08/18/17 22:49 Dose: Not Given Insulin Human Regular (Novolin R) 0 unit SC ACHS [facility] PRN Reason: Protocol Last Admin: 08/19/17 13:17 Dose: 1 unit Nitroglycerin (Nitrostat Sl Tab) 0.4 mg SL Q4H PRN PRN Reason: chest pain Ranolazine (Ranexa) 1,000 mg PO BID [facility] Last Admin: 08/19/17 11:29 Dose: 1,000 mg Rosuvastatin Calcium (Crestor) 40 mg PO HS [facility] Last Admin: 08/19/17 11:32 Dose: Not Given Sitagliptin Phosphate (Januvia) 50 mg PO BID [facility] Last Admin: 02/24/18 11:32 Dose: 50 mg Spironolactone (Aldactone) 25 mg PO BID [facility] Last Admin: 08/19/17 11:28 Dose: 25 mg Tamsulosin HCl (Flomax) 0.4 mg PO DAILY [facility] Last Admin: 08/19/17 11:32 Dose: 0.4 mg Ticagrelor (Brilinta) 90 mg PO BID [facility] Last Admin: 08/19/17 11:32 Dose: 90 mg Results - Vital Signs Recent Vital Signs: Last Vital Signs Temp 98.1 F 08/19/17 04:00 Pulse 62 08/19/17 10:25 Resp 20 08/19/17 10:25 BP 138/69 08/19/17 11:32 Pulse Ox 99 08/19/17 10:25 - Labs Result Diagrams: 08/19/17 17:10 08/19/17 17:10 Labs: Laboratory Results - last 24 hr 08/18/17 08/18/17 08/18/17 14:47 16:59 17:02 Sodium 127 L Potassium 5.4 H Chloride 96 L Carbon Dioxide 21 L Anion Gap 15 BUN 14 Creatinine 0.9 Est GFR ( Amer) > 60 Est GFR (Non-Af Amer) > 60 POC Glucose (mg/dL) 142 H Random Glucose 109 Calcium 8.3 L Total Bilirubin 0.9 AST 34 ALT 37 Alkaline Phosphatase 89 Total Protein 5.9 L Albumin 3.3 L Globulin 2.7 Albumin/Globulin Ratio 1.2 Urine Color Yellow Urine Clarity Clear Urine pH 5.0 Ur Specific [place] 1.012 Urine Protein Negative Urine Glucose (UA) Normal Urine Ketones Negative Urine Blood Negative Urine Nitrate Negative Urine Bilirubin Negative Urine Urobilinogen Normal Ur Leukocyte Esterase Neg Urine WBC (Auto) 1 Urine RBC (Auto) < 1 Ur Squamous Epith Cells < 1 Urine Bacteria Stool Occult Blood 08/18/17 08/18/17 08/18/17 20:28 20:47 22:35 Sodium Potassium Chloride Carbon Dioxide Anion Gap BUN Creatinine Est GFR ( Amer) Est GFR (Non-Af Amer) POC Glucose (mg/dL) 88 153 H Random Glucose Calcium Total Bilirubin AST ALT Alkaline Phosphatase Total Protein Albumin Globulin Albumin/Globulin Ratio Urine Color Urine Clarity Urine pH Ur Specific [place] Urine Protein Urine Glucose (UA) Urine Ketones Urine Blood Urine Nitrate Urine Bilirubin Urine Urobilinogen Ur Leukocyte Esterase Urine WBC (Auto) Urine RBC (Auto) Ur Squamous Epith Cells Urine Bacteria Stool Occult Blood Negative 08/19/17 08/19/17 12:45 13:09 Sodium Potassium Chloride Carbon Dioxide Anion Gap BUN Creatinine Est GFR ( Amer) Est GFR (Non-Af Amer) POC Glucose (mg/dL) 183 H Random Glucose Calcium Total Bilirubin AST ALT Alkaline Phosphatase Total Protein Albumin Globulin Albumin/Globulin Ratio Urine Color Yellow Urine Clarity Clear Urine pH 6.0 Ur Specific [place] 1.004 Urine Protein 1+ H Urine Glucose (UA) 1+ H Urine Ketones Negative Urine Blood Negative Urine Nitrate Negative Urine Bilirubin Negative Urine Urobilinogen Normal Ur Leukocyte Esterase Neg Urine WBC (Auto) < 1 Urine RBC (Auto) 1 Ur Squamous Epith Cells Urine Bacteria Rare Stool Occult Blood
[2017-08-19] MEDS: Sodium Chloride 0.45% 1,000 ML IV SCH (17:09)
[2017-08-19 17:14] LABS: BASO % 0.4 % (0.0-2.0); EOS # 0.3 K/uL (0.0-0.7); EOS % 3.2 % (0.0-4.0); HEMOGLOBIN 9.9 g/dL (12.0-18.0); LYMPH # 1.3 K/uL (1.0-4.3); LYMPH % 13.2 % (20.0-40.0); MEAN CELL VOLUME 88.3 fL (80.0-94.0); MEAN CORPUSCULAR HEMOGLOBIN 29.7 pg (27.0-31.0); MEAN CORPUSCULAR HGB CONC 33.7 g/dL (33.0-37.0); MEAN PLATELET VOLUME 6.8 fL (7.2-11.7); MONO % 10.5 % (0.0-10.0); NEUT % 72.7 % (50.0-75.0); RBC 3.31 Mil/uL (4.40-5.90); RED CELL DISTRIBUTION WIDTH 16.1 % (11.5-14.5); WHITE BLOOD COUNT 9.6 K/uL (4.8-10.8)
[2017-08-19 17:27] LABS: HDL CHOLESTEROL 30 mg/dL (30-70)
[2017-08-19 17:29] LABS: BLOOD UREA NITROGEN 17 mg/dL (9-20); CALCIUM 8.3 mg/dl (8.6-10.4); GFR AFRICAN-AMERICAN > 60; GFR NON-AFRICAN AMERICAN > 60
[2017-08-19 17:38] LABS: LDL CHOLESTEROL 30 mg/dL (0-129)
--- NOTE | 2017-08-19 19:57 | CARD ---
APPROVED REPORT EKG Measurement Heart [id number] ID [id number] <Conclusion> Sinus rhythm with 1st degree AV block Possible Left atrial enlargement Inferior infarct, age undetermined Anterolateral infarct, age undetermined Abnormal ECG
[2017-08-19] MEDS: (Lantus) Insulin Glargine, Recombinant SC SCH ×2 (21:51→21:52)
[2017-08-20] MEDS: (Novolin R) Insulin Human Regular 100 units/ml vial SC SCH ×5 (03:25→21:40)
[2017-08-20] MEDS: Sodium Chloride 0.45% 1,000 ML IV SCH ×3 (09:25→21:42)
[2017-08-20] MEDS: Ranolazine 500 mg Extended Release Tablets PO SCH ×2 (09:31→18:01)
[2017-08-20 09:53] LABS: BASO % 0.4 % (0.0-2.0); EOS # 0.4 K/uL (0.0-0.7); EOS % 3.7 % (0.0-4.0); HEMOGLOBIN 10.3 g/dL (12.0-18.0); LYMPH # 1.1 K/uL (1.0-4.3); MEAN CELL VOLUME 88.4 fL (80.0-94.0); MEAN CORPUSCULAR HEMOGLOBIN 30.1 pg (27.0-31.0); MEAN CORPUSCULAR HGB CONC 34.1 g/dL (33.0-37.0); MEAN PLATELET VOLUME 7.2 fL (7.2-11.7); MONO # 0.8 K/uL (0.0-0.8); MONO % 8.4 % (0.0-10.0); NEUT # 7.1 K/uL (1.8-7.0); NEUT % 75.5 % (50.0-75.0); RBC 3.44 Mil/uL (4.40-5.90); RED CELL DISTRIBUTION WIDTH 15.7 % (11.5-14.5); WHITE BLOOD COUNT 9.5 K/uL (4.8-10.8)
[2017-08-20 09:59] LABS: BLOOD UREA NITROGEN 11 mg/dL (9-20); CALCIUM 8.8 mg/dl (8.6-10.4); GFR AFRICAN-AMERICAN > 60; GFR NON-AFRICAN AMERICAN > 60
--- NOTE | 2017-08-20 16:50 | CP.PCM.CON ---
History of Present Illness - History of Present Illness History of Present Illness: CC: Dyspnea and weakness Patient is a 62yo male with PMHx significant for severe CAD with prior arrest s/ p CABGx1, PCI and recent ICD implantation 10 days [employer], HTN, DM, dyslipidemia who presented to the ED with multiple complaints including dizziness, difficulty urinating, paresthesias in his hands/feet and dark stool for roughly one week. The patient is primarily Abdulaziz speaking, thus [employer] Abdulaziz classics professor #[id number] was used to assist with history and physical examination. The patient states that he underwent ICD placement at [facility] 10 days prior to arrival and was discharged with new medication, Brilinta 90mg tablets. Two to three days after returning home he began to note dizziness with exertion, unsteady gain, had dark black bowel movements and needed to use excessive force to urinate. Regarding his bowel habits, he passed one formed, dark black bowel movement daily for several days prior to admission. Denies any bright red hematochezia/hematemesis/hematuria or bleeding from his recent surgical site. Has no palpitations, nausea, vomiting, abdominal pain, NSAID use, heartburn. No prior endoscopic evaluations. PMHx: See HPI PSHx: CABGx1 2001, Coronary angioplasty 2004, PCI + CHANO multiple times previously, most recent 1 year ago, ICD insertion 10 days ago FHx: Discussed with patient and denies any significant family history Social: Denies tobacco, EtOH or illicit drug use Endo: No prior endoscopic procedures 12 system ROS performed and negative except where stated above. Physical Exam - Constitutional Appears: Non-toxic, No Acute Distress - Eye Exam Eye Exam: EOMI, PERRL - ENT Exam ENT Exam: Mucous Membranes Moist - Respiratory Exam Respiratory Exam: Clear to Auscultation Bilateral. absent: Rales, Rhonchi, Wheezes - Cardiovascular Exam Cardiovascular Exam: Bradycardia, +S1, +S2 - GI/Abdominal Exam GI & Abdominal Exam: Distended, Firm (suprapubic), Normal Bowel Sounds, Soft. absent: Hernia, Mass, Organomegaly, Rigid, Tenderness - Rectal Exam Additional comments: formed brown stool, no blood, no hemorrhoids - Extremities Exam Extremities exam: Positive for: normal inspection. Negative for: pedal edema - Neurological Exam Neurological exam: Alert, Oriented x3 - Psychiatric Exam Psychiatric exam: Normal Affect, Normal Mood - Skin Skin Exam: Dry, Warm Past Patient History - Past Medical History & Family History Past Medical History?: Yes - Past Social History Smoking Status: Never Smoked - CARDIAC Hx Hypercholesterolemia: Yes Hx Hypertension: Yes - PULMONARY Hx Respiratory Disorders: No - NEUROLOGICAL Hx Neurological Disorder: Yes Hx Dizziness: Yes - HEENT Hx HEENT Problems: No - RENAL Hx Chronic Kidney Disease: No - ENDOCRINE/METABOLIC Hx Endocrine Disorders: Yes Hx Diabetes Mellitus Type 2: Yes - HEMATOLOGICAL/ONCOLOGICAL Hx Blood Disorders: No - INTEGUMENTARY Hx Dermatological Problems: No - MUSCULOSKELETAL/RHEUMATOLOGICAL Hx Musculoskeletal Disorders: No Hx Falls: No - GASTROINTESTINAL Hx Gastrointestinal Disorders: No - GENITOURINARY/GYNECOLOGICAL Hx Prostate Problems: Yes - PSYCHIATRIC Hx Substance Use: No - SURGICAL HISTORY Hx Vascular Surgery: Yes (AICD) - ANESTHESIA Hx Anesthesia: Yes Hx Anesthesia Reactions: No Hx Malignant Hyperthermia: No Meds Allergies/Adverse Reactions: Allergies Allergy/AdvReac Type Severity Reaction Status Date / Time No Known Allergies Allergy Unverified 05/05/13 10:28 - Medications Medications: Current Medications Amiodarone HCl (Cordarone) 200 mg PO Q12 [facility] Last Admin: 08/20/17 09:24 Dose: 200 mg Carvedilol (Coreg) 12.5 mg PO Q12 [facility] Last Admin: 08/20/17 09:24 Dose: 12.5 mg Enalapril Maleate (Vasotec) 10 mg PO DAILY [facility] Last Admin: 08/20/17 11:54 Dose: 10 mg Famotidine (Pepcid) 20 mg PO DAILY [facility] Last Admin: 08/20/17 09:24 Dose: 20 mg Finasteride (Proscar) 5 mg PO DAILY [facility] Last Admin: 08/20/17 09:24 Dose: 5 mg Gabapentin (Neurontin) 100 mg PO BID [facility] Last Admin: 08/20/17 09:24 Dose: 100 mg Sodium Chloride (Sodium Chloride 0.45%) 1,000 mls @ 70 mls/hr IV .[id number] [facility] Last Admin: 08/20/17 11:54 Dose: 70 mls/hr Insulin Glargine (Lantus) 12 unit SC HS [facility] Last Admin: 08/19/17 21:51 Dose: Not Given Insulin Glargine (Lantus) 40 unit SC HS [facility] Last Admin: 08/19/17 21:52 Dose: Not Given Insulin Human Regular (Novolin R) 0 unit SC ACHS [facility] PRN Reason: Protocol Last Admin: 08/20/17 13:40 Dose: 2 unit Nitroglycerin (Nitrostat Sl Tab) 0.4 mg SL Q4H PRN PRN Reason: chest pain Ranolazine (Ranexa) 1,000 mg PO BID [facility] Last Admin: 08/20/17 09:31 Dose: 1,000 mg Rosuvastatin Calcium (Crestor) 40 mg PO HS [facility] Last Admin: 08/19/17 21:45 Dose: 40 mg Sitagliptin Phosphate (Januvia) 50 mg PO BID [facility] Last Admin: 08/20/17 09:24 Dose: 50 mg Spironolactone (Aldactone) 25 mg PO BID [facility] Last Admin: 08/20/17 09:24 Dose: 25 mg Tamsulosin HCl (Flomax) 0.4 mg PO DAILY [facility] Last Admin: 08/20/17 09:24 Dose: 0.4 mg Ticagrelor (Brilinta) 90 mg PO BID [facility] Last Admin: 08/20/17 09:24 Dose: 90 mg Results - Vital Signs Recent Vital Signs: Last Vital Signs Temp 97.8 F 08/20/17 16:22 Pulse 61 08/20/17 16:22 Resp 18 08/20/17 16:22 BP 110/63 08/20/17 16:22 Pulse Ox 98 08/20/17 16:22 - Labs Result Diagrams: 08/20/17 09:36 08/20/17 09:36 Labs: Laboratory Results - last 24 hr 08/19/17 08/19/17 08/19/17 17:10 17:10 17:10 WBC 9.6 RBC 3.31 L Hgb 9.9 L Hct 29.2 L MCV 88.3 MCH 29.7 MCHC 33.7 RDW 16.1 H Plt Count 354 MPV 6.8 L Neut % (Auto) 72.7 Lymph % (Auto) 13.2 L [place] % (Auto) 10.5 H Eos % (Auto) 3.2 Baso % (Auto) 0.4 Neut # (Auto) 7.0 Lymph # (Auto) 1.3 [place] # (Auto) 1.0 H Eos # (Auto) 0.3 Baso # (Auto) 0.0 Sodium 128 L Potassium 5.0 Chloride 95 L Carbon Dioxide 23 Anion Gap 14 BUN 17 Creatinine 1.1 Est GFR ( Amer) > 60 Est GFR (Non-Af Amer) > 60 POC Glucose (mg/dL) Random Glucose 179 H Calcium 8.3 L Triglycerides 52 Cholesterol 81 LDL Cholesterol Direct 30 HDL Cholesterol 30 Prostate Specific Ag 08/19/17 08/19/17 08/20/17 19:04 21:48 06:25 WBC RBC Hgb Hct MCV MCH MCHC RDW Plt Count MPV Neut % (Auto) Lymph % (Auto) [place] % (Auto) Eos % (Auto) Baso % (Auto) Neut # (Auto) Lymph # (Auto) [place] # (Auto) Eos # (Auto) Baso # (Auto) Sodium Potassium Chloride Carbon Dioxide Anion Gap BUN Creatinine Est GFR ( Amer) Est GFR (Non-Af Amer) POC Glucose (mg/dL) 137 H 143 H 143 H Random Glucose Calcium Triglycerides Cholesterol LDL Cholesterol Direct HDL Cholesterol Prostate Specific Ag 08/20/17 08/20/17 08/20/17 09:36 09:36 11:17 WBC 9.5 RBC 3.44 L Hgb 10.3 L Hct 30.4 L MCV 88.4 MCH 30.1 MCHC 34.1 RDW 15.7 H Plt Count 355 MPV 7.2 Neut % (Auto) 75.5 H Lymph % (Auto) 12.0 L [place] % (Auto) 8.4 Eos % (Auto) 3.7 Baso % (Auto) 0.4 Neut # (Auto) 7.1 H Lymph # (Auto) 1.1 [place] # (Auto) 0.8 Eos # (Auto) 0.4 Baso # (Auto) 0.0 Sodium 132 Potassium 4.6 Chloride 96 L Carbon Dioxide 25 Anion Gap 15 BUN 11 Creatinine 1.1 Est GFR ( Amer) > 60 Est GFR (Non-Af Amer) > 60 POC Glucose (mg/dL) 207 H Random Glucose 163 H Calcium 8.8 Triglycerides Cholesterol LDL Cholesterol Direct HDL Cholesterol Prostate Specific Ag 0.299 Assessment & Plan - Assessment and Plan (Free Text) Assessment: 1. Acute on Chronic systolic CHF 2. s/p AICD 3. CAD s/p CABG x 1, S/P PCI 04/2016 4. Small vessel CAD 5. DM 2 6. Anemia Continue antiplatelets, Statins, B blockers, ALFRED I Check ECHO, Trops Add lasix 20 IV daily CHF management
--- NOTE | 2017-08-20 17:15 | CP.PCM.PN ---
Subjective - Date & Time of Evaluation Date of Evaluation: 08/20/17 Time of Evaluation: 17:15 - Subjective Subjective: pt is seen and examined, follow up consult is dictated #[id number] Objective - Vital Signs/Intake and Output Vital Signs (last 24 hours): Temp Pulse Resp BP Pulse Ox 97.8 F 61 18 110/63 98 08/20/17 16:22 08/20/17 16:22 08/20/17 16:22 08/20/17 16:22 08/20/17 16:22 - Medications Medications: Current Medications Amiodarone HCl (Cordarone) 200 mg PO Q12 [facility] Last Admin: 08/20/17 09:24 Dose: 200 mg Carvedilol (Coreg) 12.5 mg PO Q12 [facility] Last Admin: 08/20/17 09:24 Dose: 12.5 mg Enalapril Maleate (Vasotec) 10 mg PO DAILY [facility] Last Admin: 08/20/17 11:54 Dose: 10 mg Famotidine (Pepcid) 20 mg PO DAILY [facility] Last Admin: 08/20/17 09:24 Dose: 20 mg Finasteride (Proscar) 5 mg PO DAILY [facility] Last Admin: 08/20/17 09:24 Dose: 5 mg Gabapentin (Neurontin) 100 mg PO BID [facility] Last Admin: 08/20/17 09:24 Dose: 100 mg Sodium Chloride (Sodium Chloride 0.45%) 1,000 mls @ 70 mls/hr IV .[id number] [facility] Last Admin: 08/20/17 11:54 Dose: 70 mls/hr Insulin Glargine (Lantus) 12 unit SC [facility] Last Admin: 08/19/17 21:51 Dose: Not Given Insulin Glargine (Lantus) 40 unit SC HS [facility] Last Admin: 08/19/17 21:52 Dose: Not Given Insulin Human Regular (Novolin R) 0 unit SC ACHS [facility] PRN Reason: Protocol Last Admin: 08/20/17 17:10 Dose: 1 unit Nitroglycerin (Nitrostat Sl Tab) 0.4 mg SL Q4H PRN PRN Reason: chest pain Ranolazine (Ranexa) 1,000 mg PO BID [facility] Last Admin: 08/20/17 09:31 Dose: 1,000 mg Rosuvastatin Calcium (Crestor) 40 mg PO [facility] Last Admin: 08/19/17 21:45 Dose: 40 mg Sitagliptin Phosphate (Januvia) 50 mg PO BID [facility] Last Admin: 08/20/17 09:24 Dose: 50 mg Spironolactone (Aldactone) 25 mg PO BID [facility] Last Admin: 08/20/17 09:24 Dose: 25 mg Tamsulosin HCl (Flomax) 0.4 mg PO DAILY [facility] Last Admin: 08/20/17 09:24 Dose: 0.4 mg Ticagrelor (Brilinta) 90 mg PO BID [facility] Last Admin: 08/20/17 09:24 Dose: 90 mg - Labs Labs: 08/20/17 09:36 08/20/17 09:36 PT 15.4 SECONDS (9.7-12.2) H 08/18/17 15:35 INR 1.4 08/18/17 15:35 APTT 26 SECONDS (21-34) 08/18/17 15:35
--- NOTE | 2017-08-20 18:16 | CP.PCM.PN ---
Subjective - Date & Time of Evaluation Date of Evaluation: 08/20/17 Time of Evaluation: 08:30 Objective - Vital Signs/Intake and Output Vital Signs (last 24 hours): Temp Pulse Resp BP Pulse Ox 97.8 F 61 18 110/63 98 08/20/17 16:22 08/20/17 16:22 08/20/17 16:22 08/20/17 16:22 08/20/17 16:22 - Medications Medications: Current Medications Amiodarone HCl (Cordarone) 200 mg PO Q12 [facility] Last Admin: 08/20/17 09:24 Dose: 200 mg Carvedilol (Coreg) 12.5 mg PO Q12 [facility] Last Admin: 08/20/17 09:24 Dose: 12.5 mg Enalapril Maleate (Vasotec) 10 mg PO DAILY [facility] Last Admin: 08/20/17 11:54 Dose: 10 mg Famotidine (Pepcid) 20 mg PO DAILY [facility] Last Admin: 08/20/17 09:24 Dose: 20 mg Finasteride (Proscar) 5 mg PO DAILY [facility] Last Admin: 08/20/17 09:24 Dose: 5 mg Gabapentin (Neurontin) 100 mg PO BID [facility] Last Admin: 08/20/17 17:59 Dose: 100 mg Sodium Chloride (Sodium Chloride 0.45%) 1,000 mls @ 70 mls/hr IV .[id number] [facility] Last Admin: 08/20/17 11:54 Dose: 70 mls/hr Insulin Glargine (Lantus) 12 unit SC [facility] Last Admin: 08/19/17 21:51 Dose: Not Given Insulin Glargine (Lantus) 40 unit SC HS [facility] Last Admin: 08/19/17 21:52 Dose: Not Given Insulin Human Regular (Novolin R) 0 unit SC [facility] PRN Reason: Protocol Last Admin: 08/20/17 17:10 Dose: 1 unit Nitroglycerin (Nitrostat Sl Tab) 0.4 mg SL Q4H PRN PRN Reason: chest pain Ranolazine (Ranexa) 1,000 mg PO BID [facility] Last Admin: 08/20/17 18:01 Dose: 1,000 mg Rosuvastatin Calcium (Crestor) 40 mg PO [facility] Last Admin: 08/19/17 21:45 Dose: 40 mg Sitagliptin Phosphate (Januvia) 50 mg PO BID [facility] Last Admin: 08/20/17 18:00 Dose: 50 mg Spironolactone (Aldactone) 25 mg PO BID [facility] Last Admin: 08/20/17 18:00 Dose: 25 mg Tamsulosin HCl (Flomax) 0.4 mg PO DAILY [facility] Last Admin: 08/20/17 09:24 Dose: 0.4 mg Ticagrelor (Brilinta) 90 mg PO BID [facility] Last Admin: 08/20/17 17:59 Dose: 90 mg - Labs Labs: 08/20/17 09:36 08/20/17 09:36 PT 15.4 SECONDS (9.7-12.2) H 08/18/17 15:35 INR 1.4 08/18/17 15:35 APTT 26 SECONDS (21-34) 08/18/17 15:35
--- NOTE | 2017-08-20 18:37 | CP.PCM.PN ---
Subjective - Date & Time of Evaluation Date of Evaluation: 08/20/17 Time of Evaluation: 11:40 - Subjective Subjective: OCCASIONAL DIZZINESS. NO CP. Objective - Vital Signs/Intake and Output Vital Signs (last 24 hours): Temp Pulse Resp BP Pulse Ox 97.8 F 61 18 110/63 98 08/20/17 16:22 08/20/17 16:22 08/20/17 16:22 08/20/17 16:22 08/20/17 16:22 - Medications Medications: Current Medications Amiodarone HCl (Cordarone) 200 mg PO Q12 [facility] Last Admin: 08/20/17 09:24 Dose: 200 mg Carvedilol (Coreg) 12.5 mg PO Q12 [facility] Last Admin: 08/20/17 09:24 Dose: 12.5 mg Enalapril Maleate (Vasotec) 10 mg PO DAILY [facility] Last Admin: 08/20/17 11:54 Dose: 10 mg Famotidine (Pepcid) 20 mg PO DAILY [facility] Last Admin: 08/20/17 09:24 Dose: 20 mg Finasteride (Proscar) 5 mg PO DAILY [facility] Last Admin: 08/20/17 09:24 Dose: 5 mg Gabapentin (Neurontin) 100 mg PO BID [facility] Last Admin: 08/20/17 17:59 Dose: 100 mg Sodium Chloride (Sodium Chloride 0.45%) 1,000 mls @ 70 mls/hr IV .[id number] [facility] Last Admin: 08/20/17 11:54 Dose: 70 mls/hr Insulin Glargine (Lantus) 12 unit SC [facility] Last Admin: 08/19/17 21:51 Dose: Not Given Insulin Glargine (Lantus) 40 unit SC HS [facility] Last Admin: 08/19/17 21:52 Dose: Not Given Insulin Human Regular (Novolin R) 0 unit SC ACHS [facility] PRN Reason: Protocol Last Admin: 08/20/17 17:10 Dose: 1 unit Nitroglycerin (Nitrostat Sl Tab) 0.4 mg SL Q4H PRN PRN Reason: chest pain Ranolazine (Ranexa) 1,000 mg PO BID [facility] Last Admin: 08/20/17 18:01 Dose: 1,000 mg Rosuvastatin Calcium (Crestor) 40 mg PO [facility] Last Admin: 08/19/17 21:45 Dose: 40 mg Sitagliptin Phosphate (Januvia) 50 mg PO BID [facility] Last Admin: 08/20/17 18:00 Dose: 50 mg Spironolactone (Aldactone) 25 mg PO BID [facility] Last Admin: 08/20/17 18:00 Dose: 25 mg Tamsulosin HCl (Flomax) 0.4 mg PO DAILY [facility] Last Admin: 08/20/17 09:24 Dose: 0.4 mg Ticagrelor (Brilinta) 90 mg PO BID [facility] Last Admin: 08/20/17 17:59 Dose: 90 mg - Labs Labs: 08/20/17 09:36 08/20/17 09:36 PT 15.4 SECONDS (9.7-12.2) H 08/18/17 15:35 INR 1.4 08/18/17 15:35 APTT 26 SECONDS (21-34) 08/18/17 15:35 - Constitutional Appears: No Acute Distress, Chronically Ill - Eye Exam Eye Exam: PERRL - ENT Exam ENT Exam: Mucous Membranes Moist - Respiratory Exam Respiratory Exam: Clear to Ausculation Bilateral, NORMAL BREATHING PATTERN - Cardiovascular Exam Cardiovascular Exam: REGULAR RHYTHM, +S1, +S2 - GI/Abdominal Exam GI & Abdominal Exam: Soft, Normal Bowel Sounds - Extremities Exam Extremities Exam: Full ROM, Normal Capillary Refill, Normal Inspection. absent : Joint Swelling, Pedal Edema - Neurological Exam Neurological Exam: Alert, Awake, CN II-XII Intact, Normal Gait, Oriented x3 - Psychiatric Exam Psychiatric exam: Normal Affect, Normal Mood Assessment and Plan - Assessment and Plan (Free Text) Assessment: CAD. RETENTION OF URINE. Plan: FOR EVAL, CARDIAC AND RENAL EVAL.
[2017-08-20] MEDS: (Lantus) Insulin Glargine, Recombinant SC SCH (23:44)
--- NOTE | 2017-08-21 05:30 | PN ---
DATE: 08/20/2017 The patient is located in room 551, bed A. Requested to Dr. Nicholas Grover. REASON FOR FOLLOWUP: Status post hyperkalemia, hyponatremia, hypertension, diabetes, bladder outlet obstruction. SUBJECTIVE: Mr. Guerrero is a 62-year-old male with a past medical history significant for longstanding hypertension, diabetes, hyperlipidemia, coronary artery disease, status post multiple angioplasties, stents, and status post pass-out about 10 days ago. Subsequently, the patient was admitted to [facility] where he underwent angioplasty and stenting and subsequently transferred to [facility] for AICD placement. Status post AICD placement, now the patient was admitted yesterday after presenting to the ER with difficulty to void and found to have bladder distention and status post Hernandez catheter placement and drained about 2.5 liters immediately. Now, the patient has a good urine output. The patient is feeling better, not in acute distress. No chest pain or palpitation. No fever. No cough. No abdominal pain. No nausea, vomiting, diarrhea. CURRENT MEDICATIONS: Include as follows: Aldactone 25 mg p.o. b.i.d., Brilinta 90 mg p.o. b.i.d., amiodarone 200 mg p.o. q.12 hours, Coreg 12.5 mg p.o. q.12, Crestor 400 mg p.o. at bedtime, Flomax 0.4 mg daily, Januvia 50 mg p.o. b.i.d., and Lantus 12 units and 40 units at bedtime, Dilantin 100 mg p.o. b.i.d., Nitrostat sublingual p.r.n., Novolin R per sliding scale, Pepcid 20 mg p.o. daily, Proscar 5 mg p.o. daily, Ranexa 1000 mg p.o. b.i.d., IV fluids half-normal saline at 70 mL/hour, enalapril 10 mg p.o. daily. PHYSICAL EXAMINATION; VITAL SIGNS: As follows: Blood pressure 110/63, pulse 61, respiration 18, temperature 97.8, saturation 98%. Height 5 feet 4 inches and weight is 154 pounds. GENERAL: Mr. Guerrero is a [id number] male, moderately built, moderately nourished, not in acute distress. HEENT: Pupils normal and reactive to light and accommodation. Conjunctivae pink. Sclerae anicteric. Tongue is moist. Trachea is midline. LUNGS: Symmetric on both sides. Bilateral breath sounds present. Clear on auscultation. CVS: [place] at the fifth intercostal space, midclavicular line. S1 and S2 audible. No murmur or gallop. Status post the pacemaker in the left subclavian region and also the patient has a midsternal scar present from the previous CABG and keloid also present. ABDOMEN: Normal in appearance, soft, tympanic. No guarding. No rigidity. No hepatosplenomegaly. GENERAL SERVICE OFFICER: The patient is alert, awake, oriented x3. Nonfocal neuro examination. Cranial nerves II through XII grossly intact. Sensory and motor system is within normal limits. EXTREMITIES: No cyanosis, no clubbing, no edema. CURRENT MEDICATIONS: Include as above. His I and Os, intake, drained about 2.5 liters yesterday immediately after placing the Hernandez catheter and then the patient is voiding about 7200 cc/hour . INR was documented. This afternoon, the patient has urine output about 1 liter in the bag, about 05:00 p.m. LABORATORY DATA: Include as follows: As of 08/20/2017, WBC 9.5, hemoglobin 10.3, hematocrit is 30.4, platelets 355. Sodium 132, potassium 4.6, chloride 96, CO2 is 25, BUN 11, creatinine 1.1, glucose 163, calcium 8.8. PSA is 0.29. No urine culture report is available. In summary, Mr. Guerrero is a 62-year-old male with multiple medical problems including hypertension, diabetes, hyperlipidemia, coronary artery disease, status post CABG, status post pass-out, and status post AICD placement, BPH, was admitted with a decreased urine output for x1 day and found to have a urinary retention and drained about 2.5 liters immediately. 1. Status post hyperkalemia. Serum sodium is now within normal limits. 2. Hyponatremia. Serum sodium is improving nicely, now 132. 3. Bladder outlet obstruction secondary to BPH, most likely, cannot rule out neurogenic bladder also due to diabetes for longstanding. PLAN: Continue Hernandez catheter. Do a bedside drainage. Continue Flomax. Continue Proscar. Follow up with Urology for possible cystoscopy and urodynamics. We will follow with you. Thank you for allowing me to participate in your patient's care. Continue IV fluids half-normal saline at 70 cc/hour. Continue his current medications as above including TriCor, amiodarone, Coreg, spironolactone, enalapril, Flomax, Proscar, Pepcid, nitroglycerin, gabapentin, and Crestor. Thank you for allowing me to participate in your patient's care. Delfin Gipson MD
[2017-08-21 08:51] LABS: CK-MB 0.96 ng/mL (0.0-3.38); TROPONIN I 0.032 ng/mL (0.00-0.120)
[2017-08-21] MEDS: Sodium Chloride 0.45% 1,000 ML IV SCH ×3 (09:51→23:21)
[2017-08-21] MEDS: (Novolin R) Insulin Human Regular 100 units/ml vial SC SCH ×4 (09:53→21:37)
[2017-08-21] MEDS: Ranolazine 500 mg Extended Release Tablets PO SCH ×2 (09:54→18:06)
--- NOTE | 2017-08-21 10:16 | CON ---
DATE: 08/19/2017 FOLLOWUP RENAL CONSULTATION LOCATION: The patient is located in Emergency Room 11 and later transferred to 551, bed A. REQUESTED BY: Dr. Sheyla Grover. REASON FOR RENAL CONSULTATION: Hyperkalemia, hyponatremia, for further evaluation. HISTORY OF PRESENT ILLNESS: Mr. Guerrero is a 62-year-old very pleasant male with a past medical history significant for hypertension for 18 to 20 years, diabetes for 20 years, hyperlipidemia, coronary artery disease, status post CABG in 2001, status post angioplasty in 2014 and status post angioplasty again in 02/2016, 03/2016 and 04/2016. The patient had one time angioplasty and then recently the patient was admitted to [facility] about 10 days ago when he passed out and lost consciousness. Subsequently, the patient underwent cardiac cath and underwent a stent placement and balloon angioplasty. As per the patient, he also had cardiac CPR done when he passed out. Subsequently, the patient was transferred from the [facility] to [facility] for defibrillator placement. The patient also has history of BPH in the past for the last 15 years. The patient was admitted with chief complaint of decreased urine output for 1 day and found to have a hyperkalemia, and low serum sodium. Renal consult requested for further evaluation. The patient underwent a CT scan of the abdomen and pelvis last night and found to have a distended bladder and subsequently Hernandez catheter was placed this morning and drained about 2.5 liters of urine. Subsequently, has urine output about 100 mL/hour clear urine. Denies any chest pain, palpitation or denies any fever, cough. Denies any abdominal pain at this time. Feels much better after the Hernandez catheter insertion. No fever. No cough. No shortness of breath. No dizziness. No edema of the legs. PAST MEDICAL HISTORY: Significant for hypertension from 18 to 20 years and diabetes for 20 years, hyperlipidemia, coronary artery disease, and BPH. PAST SURGICAL HISTORY: Status post CABG in 2001, angioplasty in 2014 and also angioplasty and stent placement in 02/2016, 03/2016 and 04/2016, status post passed out and syncopal episode 10 days ago, status post defibrillator placement. ALLERGIES: NO KNOWN DRUG ALLERGIES. FAMILY HISTORY: Both parents . SOCIAL HISTORY: The patient denies any smoking. No alcohol or drugs. PERSONAL HISTORY: He is and he has 2 children. CURRENT MEDICATIONS: Include as follows; Aldactone 25 mg p.o. b.i.d. Brilinta 90 mg p.o. b.i.d., amiodarone 200 mg p.o. q. 12 hours, Coreg 12.5 mg p.o. q. 12 hours, Crestor 40 mg at bedtime, Flomax 0.4 mg p.o. daily, Januvia 50 mg p.o. b.i.d., Lantus 12 units subcutaneous at bedtime, Lantus 40 units subcutaneous at bedtime, Neurontin 100 mg p.o. b.i.d., Nitrostat 0.4 mg sublingual p.r.n., Novolin R for sliding scale, Pepcid 20 mg p.o. daily, Proscar 5 mg p.o. daily, Ranexa 1000 mg p.o. b.i.d., IV fluids half normal saline 70 mL per hour, and enalapril 10 mg p.o. daily. REVIEW OF SYSTEMS: Significant for abdominal distention and decreased urine output for 1 to 2 days. Decreased p.o. intake. All other review of systems are reviewed and negative. PHYSICAL EXAMINATION GENERAL: Mr. Guerrero is a 62-year-old elderly very pleasant male with moderately-built, moderately-nourished, not in acute distress. VITAL SIGNS: As follows; blood pressure this afternoon 138/69, pulse 62, respirations 20, temperature 98, saturation 99%, height 5 feet 4 inches, and weight is 154 pounds. HEENT: Pupils are normal and reactive to light and accommodation. Conjunctivae are pink. Sclerae are anicteric. Tongue is moist. Trachea is midline. LUNGS: Symmetry on both sides. Bilateral breath sounds present and clear on auscultation. CARDIOVASCULAR SYSTEM: [place] at the fifth intercostal space, midclavicular line. S1 and S2 audible. No murmur. No gallop. The patient has a pacemaker in the left subclavian region or defibrillator. The patient has midsternal scar present from the previous CABG with keloid formation. ABDOMEN: Normal in appearance, soft, and tympanic. No guarding. No rigidity. No hepatosplenomegaly. CENTRAL NERVOUS SYSTEM: The patient is alert, awake and oriented x3. Nonfocal neuro examination. Cranial nerves II through XII grossly intact. Sensory and motor system is within normal limits. EXTREMITIES: No cyanosis. No clubbing. No edema. SKIN: [place] is normal. LABORATORY DATA: Include as follows as of 08/18/2017, WBC of 11.5, hemoglobin of 10.4, hematocrit is 30.7 and platelets of 348 and neutrophils 87, lymphs 6, monos 6 and eosinophils 1. PT is 15.4, INR 1.4, PTT 26, D-dimer 719. Sodium is 126, potassium is 6.1, chloride is 92, CO2 is 23, BUN is 15, and creatinine is 1.0. Glucose is 135 and calcium is 8, total bili 1.0, AST 35, ALT 38, alkaline phosphatase 91. Troponin of 0.059, and proBNP 1570. Total protein 6.5, albumin is 3.7. Urinalysis; yellow, clear, pH 5, specific gravity , protein negative, glucose negative, normal ketones, blood negative, nitrites negative, bilirubin negative, urobilinogen normal, leukocyte esterase negative, wbc 1, rbc less than 1. Stool for occult blood is negative. His repeat labs as of 08/18/2017, at 17:02 hours, potassium is 5.4 and as of 08/19/2017, sodium 128, potassium is 5, chloride 95, CO2 of 23, BUN 17, creatinine 1.1, glucose 179 and calcium is 8.3, triglycerides are 52, cholesterol is 81, LDL is 30, HDL is 30. As of 08/19/2017, WBC 9.6, hemoglobin 9.9, hematocrit is 29.2, platelets 354. Other reports: Chest x-ray as of 08/18/2017, mild pulmonary venous congestion, , left-sided AICD. CT of the abdomen and pelvis as of 08/18/2017. Impression: Cardiomegaly, atherosclerotic disease and pacemaker, markedly distended bladder, bilateral hydroureteronephrosis most likely due to bladder distention. Minimal air in the bladder, bladder infection versus iatrogenic left upper quadrant mesenteric cyst. No acute bowel abnormality. The bladder extends above the level of the umbilicus. There is a small amount of air in the bladder. Prostate is enlarged, seminal vesicles are unremarkable. ASSESSMENT AND PLAN: In summary, Mr. Guerrero is a 62-year-old male with a history of hypertension, diabetes, hyperlipidemia, coronary artery disease, coronary artery bypass grafting and multiple angioplasties and stents status post passed out or the syncopal episode about 10 days ago and status post CPR who was admitted initial to [facility] status post cardiac cath, stent and angioplasty and subsequently, the patient was transferred to [facility] for automatic implantable cardioverter-defibrillator placement and also history of benign prostatic hypertrophy. Now, the patient was admitted with decreased urine output and found to have hyperkalemia, low serum sodium. CT scan consistent with bladder distention up to the umbilicus and bilateral hydroureteronephrosis status post Hernandez catheter placement and drained about immediately 2.5 liters of urine. 1. Bladder outlet obstructions secondary to enlarged prostate rule out benign prostatic hypertrophy versus prostate cancer. 2. Hyperkalemia secondary to obstructive uropathy, medications Aldactone, beta rachele and also ALFRED inhibitors. 3. Hypertension. 4. Coronary artery disease status post coronary artery bypass grafting. PLAN: Continue Hernandez catheter drainage to bedside bag and started on IV fluids half normal saline at 70 mL per hour and continue to monitor BMP, sodium and potassium level and also advised low sodium, low-potassium diet. Followup with the Urologist Dr. Oslon and check PSA level and urine cultures. We will follow with you. Thank you for allowing me to participate in your patient's care. Delfin Gipson MD
--- NOTE | 2017-08-21 12:33 | CP.PCM.PN ---
Subjective - Date & Time of Evaluation Date of Evaluation: 08/21/17 Time of Evaluation: 12:31 - Subjective Subjective: ANXIOUS. NO CP. NO PALPITATION. RETENTION OF URINE. Objective - Vital Signs/Intake and Output Vital Signs (last 24 hours): Temp Pulse Resp BP Pulse Ox 98.0 F 60 20 151/73 H 96 08/21/17 07:33 08/21/17 07:33 08/21/17 07:33 08/21/17 09:55 08/21/17 07:33 Intake and Output: 08/21/17 08/21/17 06:59 18:59 Intake Total 1440 Output Total 2500 Balance -1060 - Medications Medications: Current Medications Amiodarone HCl (Cordarone) 200 mg PO Q12 COUNTS INCLUDE 234 BEDS AT THE [facility] Last Admin: 08/21/17 09:55 Dose: 200 mg Carvedilol (Coreg) 12.5 mg PO Q12 COUNTS INCLUDE 234 BEDS AT THE [facility] Last Admin: 08/21/17 09:54 Dose: 12.5 mg Enalapril Maleate (Vasotec) 10 mg PO DAILY COUNTS INCLUDE 234 BEDS AT THE [facility] Last Admin: 08/21/17 09:55 Dose: 10 mg Famotidine (Pepcid) 20 mg PO DAILY COUNTS INCLUDE 234 BEDS AT THE [facility] Last Admin: 08/21/17 09:54 Dose: 20 mg Finasteride (Proscar) 5 mg PO DAILY COUNTS INCLUDE 234 BEDS AT THE [facility] Last Admin: 08/21/17 09:55 Dose: 5 mg Gabapentin (Neurontin) 100 mg PO BID COUNTS INCLUDE 234 BEDS AT THE [facility] Last Admin: 08/21/17 09:54 Dose: 100 mg Sodium Chloride (Sodium Chloride 0.45%) 1,000 mls @ 70 mls/hr IV .[id number] COUNTS INCLUDE 234 BEDS AT THE [facility] Last Admin: 08/21/17 09:51 Dose: 70 mls/hr Insulin Glargine (Lantus) 40 unit SC [facility] Last Admin: 08/20/17 23:44 Dose: 40 u Insulin Human Regular (Novolin R) 0 unit SC ACHS COUNTS INCLUDE 234 BEDS AT THE [facility] PRN Reason: Protocol Last Admin: 08/21/17 09:53 Dose: 1 unit Nitroglycerin (Nitrostat Sl Tab) 0.4 mg SL Q4H PRN PRN Reason: chest pain Ranolazine (Ranexa) 1,000 mg PO BID COUNTS INCLUDE 234 BEDS AT THE [facility] Last Admin: 08/21/17 09:54 Dose: 1,000 mg Rosuvastatin Calcium (Crestor) 40 mg PO [facility] Last Admin: 08/20/17 21:47 Dose: 40 mg Sitagliptin Phosphate (Januvia) 50 mg PO BID COUNTS INCLUDE 234 BEDS AT THE [facility] Last Admin: 08/21/17 09:55 Dose: 50 mg Spironolactone (Aldactone) 25 mg PO BID COUNTS INCLUDE 234 BEDS AT THE [facility] Last Admin: 08/21/17 09:55 Dose: 25 mg Tamsulosin HCl (Flomax) 0.4 mg PO DAILY COUNTS INCLUDE 234 BEDS AT THE [facility] Last Admin: 08/21/17 09:55 Dose: 0.4 mg Ticagrelor (Brilinta) 90 mg PO BID COUNTS INCLUDE 234 BEDS AT THE [facility] Last Admin: 08/21/17 09:54 Dose: 90 mg - Labs Labs: 08/20/17 09:36 08/20/17 09:36 PT 15.4 SECONDS (9.7-12.2) H 08/18/17 15:35 INR 1.4 08/18/17 15:35 APTT 26 SECONDS (21-34) 08/18/17 15:35 - Constitutional Appears: No Acute Distress, Chronically Ill - Eye Exam Eye Exam: EOMI, Normal appearance, PERRL Pupil Exam: NORMAL ACCOMODATION, PERRL - ENT Exam ENT Exam: Mucous Membranes Moist, Normal Exam - Neck Exam Neck Exam: Full ROM, Normal Inspection. absent: Lymphadenopathy - Respiratory Exam Respiratory Exam: Clear to Ausculation Bilateral, NORMAL BREATHING PATTERN - Cardiovascular Exam Cardiovascular Exam: REGULAR RHYTHM, +S1, +S2. absent: Murmur - GI/Abdominal Exam GI & Abdominal Exam: Soft, Normal Bowel Sounds. absent: Tenderness - Exam Exam: Circumcision, NORMAL INSPECTION External exam: NORMAL EXTERNAL EXAM Speculum exam: NORMAL SPECULUM EXAM Bimanual exam: NORMAL BIMANUAL EXAM - Extremities Exam Extremities Exam: Full ROM, Normal Capillary Refill, Normal Inspection. absent : Joint Swelling, Pedal Edema - Neurological Exam Neurological Exam: Alert, Awake, CN II-XII Intact, Normal Gait, Oriented x3 - Psychiatric Exam Psychiatric exam: Anxious Assessment and Plan - Assessment and Plan (Free Text) Assessment: CARDIAC STABLE. CAD. ICD. RETENTION OF URINE. Plan: FOR G/U EVAL. CLEARED FOR CYSTOSCOPY.
--- NOTE | 2017-08-21 13:10 | CP.PCM.PN ---
Subjective - Date & Time of Evaluation Date of Evaluation: 08/21/17 Time of Evaluation: 13:10 - Subjective Subjective: pt is seen and examined, follow up consult is dictated #[id number] Objective - Vital Signs/Intake and Output Vital Signs (last 24 hours): Temp Pulse Resp BP Pulse Ox 98.0 F 60 20 151/73 H 96 08/21/17 07:33 08/21/17 07:33 08/21/17 07:33 08/21/17 09:55 08/21/17 07:33 Intake and Output: 08/21/17 08/21/17 06:59 18:59 Intake Total 1440 Output Total 2500 Balance -1060 - Medications Medications: Current Medications Amiodarone HCl (Cordarone) 200 mg PO Q12 [facility] Last Admin: 08/21/17 09:55 Dose: 200 mg Carvedilol (Coreg) 12.5 mg PO Q12 [facility] Last Admin: 08/21/17 09:54 Dose: 12.5 mg Enalapril Maleate (Vasotec) 10 mg PO DAILY [facility] Last Admin: 08/21/17 09:55 Dose: 10 mg Famotidine (Pepcid) 20 mg PO DAILY [facility] Last Admin: 08/21/17 09:54 Dose: 20 mg Finasteride (Proscar) 5 mg PO DAILY [facility] Last Admin: 08/21/17 09:55 Dose: 5 mg Gabapentin (Neurontin) 100 mg PO BID [facility] Last Admin: 08/21/17 09:54 Dose: 100 mg Sodium Chloride (Sodium Chloride 0.45%) 1,000 mls @ 70 mls/hr IV .[id number] [facility] Last Admin: 08/21/17 09:51 Dose: 70 mls/hr Insulin Glargine (Lantus) 40 unit SC HS [facility] Last Admin: 08/20/17 23:44 Dose: 40 u Insulin Human Regular (Novolin R) 0 unit SC ACHS [facility] PRN Reason: Protocol Last Admin: 08/21/17 09:53 Dose: 1 unit Nitroglycerin (Nitrostat Sl Tab) 0.4 mg SL Q4H PRN PRN Reason: chest pain Ranolazine (Ranexa) 1,000 mg PO BID [facility] Last Admin: 08/21/17 09:54 Dose: 1,000 mg Rosuvastatin Calcium (Crestor) 40 mg PO HS [facility] Last Admin: 08/20/17 21:47 Dose: 40 mg Sitagliptin Phosphate (Januvia) 50 mg PO BID [facility] Last Admin: 08/21/17 09:55 Dose: 50 mg Spironolactone (Aldactone) 25 mg PO BID [facility] Last Admin: 08/21/17 09:55 Dose: 25 mg Tamsulosin HCl (Flomax) 0.4 mg PO DAILY [facility] Last Admin: 08/21/17 09:55 Dose: 0.4 mg Ticagrelor (Brilinta) 90 mg PO BID [facility] Last Admin: 08/21/17 09:54 Dose: 90 mg - Labs Labs: 08/20/17 09:36 08/20/17 09:36 PT 15.4 SECONDS (9.7-12.2) H 08/18/17 15:35 INR 1.4 08/18/17 15:35 APTT 26 SECONDS (21-34) 08/18/17 15:35
[2017-08-21 17:11] LABS: BLOOD UREA NITROGEN 8 mg/dL (9-20); CALCIUM 9.1 mg/dl (8.6-10.4); GFR AFRICAN-AMERICAN > 60; GFR NON-AFRICAN AMERICAN > 60
[2017-08-21] MEDS: (Lantus) Insulin Glargine, Recombinant SC SCH (21:43)
--- NOTE | 2017-08-21 23:18 | CP.PCM.PN ---
Subjective - Date & Time of Evaluation Date of Evaluation: 08/21/17 Time of Evaluation: 19:35 - Subjective Subjective: Patient seen and evaluated ECHO: EF 40%, s/p AICD No pericardial efffusion Objective - Vital Signs/Intake and Output Vital Signs (last 24 hours): Temp Pulse Resp BP Pulse Ox 87.9 F L 64 18 132/67 98 08/21/17 22:00 08/21/17 22:00 08/21/17 22:00 08/21/17 22:00 08/21/17 15:00 Intake and Output: 08/21/17 08/22/17 18:59 06:59 Intake Total 1680 540 Output Total 2100 1200 Balance -420 -660 - Medications Medications: Current Medications Amiodarone HCl (Cordarone) 200 mg PO Q12 [facility] Last Admin: 08/21/17 21:40 Dose: 200 mg Carvedilol (Coreg) 12.5 mg PO Q12 [facility] Last Admin: 08/21/17 21:41 Dose: 12.5 mg Enalapril Maleate (Vasotec) 10 mg PO DAILY [facility] Last Admin: 08/21/17 09:55 Dose: 10 mg Famotidine (Pepcid) 20 mg PO DAILY [facility] Last Admin: 08/21/17 09:54 Dose: 20 mg Finasteride (Proscar) 5 mg PO DAILY [facility] Last Admin: 08/21/17 09:55 Dose: 5 mg Gabapentin (Neurontin) 100 mg PO BID [facility] Last Admin: 08/21/17 17:55 Dose: 100 mg Sodium Chloride (Sodium Chloride 0.45%) 1,000 mls @ 70 mls/hr IV .[id number] [facility] Last Admin: 08/21/17 12:10 Dose: Not Given Insulin Glargine (Lantus) 40 unit SC HS [facility] Last Admin: 08/21/17 21:43 Dose: 40 u Insulin Human Regular (Novolin R) 0 unit SC ACHS [facility] PRN Reason: Protocol Last Admin: 08/21/17 21:37 Dose: Not Given Nitroglycerin (Nitrostat Sl Tab) 0.4 mg SL Q4H PRN PRN Reason: chest pain Ranolazine (Ranexa) 1,000 mg PO BID [facility] Last Admin: 08/21/17 18:06 Dose: 1,000 mg Rosuvastatin Calcium (Crestor) 40 mg PO HS [facility] Last Admin: 08/21/17 21:40 Dose: 40 mg Sitagliptin Phosphate (Januvia) 50 mg PO BID [facility] Last Admin: 08/21/17 17:56 Dose: 50 mg Spironolactone (Aldactone) 25 mg PO BID [facility] Last Admin: 08/21/17 17:55 Dose: 25 mg Tamsulosin HCl (Flomax) 0.4 mg PO DAILY [facility] Last Admin: 08/21/17 09:55 Dose: 0.4 mg Ticagrelor (Brilinta) 90 mg PO BID [facility] Last Admin: 08/21/17 17:55 Dose: 90 mg - Labs Labs: 08/20/17 09:36 08/21/17 16:55 PT 15.4 SECONDS (9.7-12.2) H 08/18/17 15:35 INR 1.4 08/18/17 15:35 APTT 26 SECONDS (21-34) 08/18/17 15:35
--- NOTE | 2017-08-22 06:54 | PN ---
DATE: 08/21/2017. FOLLOWUP RENAL CONSULTATION LOCATION: Room 551, bed A. SUBJECTIVE: Mr. guerrero is 62 years old elderly male with a past medical history significant for longstanding hypertension, diabetes, hyperlipidemia, coronary artery disease, status post CABG, multiple angioplasties, stents, and status post passout and subsequently patient was admitted to [facility] from there patient was transferred to [facility] for AICD placement about 2 weeks ago. The patient was admitted 2 days ago with difficulty to urinate and found to have bladder outlet obstruction the bladder was distended up the umbilicus and status post Hernandez catheter placement, drained about 2.5 litre. Patient has a good urine. Denies any chest pain, palpitation. Patient does complain of dizziness when he walks around, he feels the room is spinning especially when standing and walking. PHYSICAL EXAMINATION: VITAL SIGNS: As follows blood pressure this morning 151/73, pulse 60, respirations 20, temperature 97.4, saturations 98%, height 5 feet 4 inches and weight is 154 pounds. GENERAL: Mr. Guerrero is a 62 years old male moderately built, moderately nourished, not in acute distress. HEENT: Pupils are normal and reactive to light and accommodation. Conjunctivae are pink. Sclerae are anicteric. Tongue is moist. Trachea is midline.. LUNGS: Symmetry on both sides. Bilateral breath sounds present and clear on auscultation. CVS: [place] at the fifth intercostal space, midclavicular line. S1 and S2 audible. No murmur. No gallop. The patient has a AICD in the left subclavian region and also midsternal scar from the previous CABG with keloid. ABDOMEN: Normal in appearance, soft, and tympanic. No guarding. No rigidity. No hepatosplenomegaly. 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 Nonfocal neuro examination. Cranial nerves II through XII grossly intact. Sensory and motor system is within normal limits. EXTREMITIES: No cyanosis. No clubbing. No edema. His 24 hours I and Os, intake is 1608 and output is 2100 since morning and yesterday intake is 1440 and output is 2500. CURRENT MEDICATIONS: Include as follows; Aldactone 25 mg p.o. b.i.d., Brilinta 90 mg p.o. b.i.d., amiodarone 200 mg p.o. q. 12 hours, Coreg 12.5 mg p.o. q. 12 hours, Crestor 40 mg at bedtime, Flomax 0.4 mg daily, Januvia 50 mg p.o. b.i.d., Lantus 40 units subcu at bedtime, Neurontin 100 mg p.o. b.i.d., Nitrostat 0.4 mg sublingual p.r.n., Novolin R for sliding scale, Pepcid 40 mg p.o. daily, Ranexa 1000 mg p.o. b.i.d., IV fluids half normal saline 70 mL per hour and Vasotec 10 mg p.o. daily. LABORATORY DATA: Include as follows as of 08/21/2017; sodium 133, potassium 4.7, chloride 95, CO2 24, BUN 8, creatinine 1.0, glucose 214, calcium 9.1. ASSESSMENT: In summary, Mr. Guerrero is a 62 years old elderly male with hypertension, diabetes, hyperlipidemia, coronary artery disease, status post coronary artery bypass grafting, benign prostate hypertrophy, with bladder outlet obstructions, status post hyperkalemia and hypernatremia with normal PSA level and enlarged prostatic on CAT scan: 1. Status post hyperkalemia secondary to bladder outlet obstruction and bilateral hydroureteronephrosis. 2. Benign prostate hypertrophy. 3. Hypertension. 4. Coronary artery disease. 5. Status post automated implantable cardioverter defibrillator placement. PLAN: Continue his current medications, follow with Cardiology, and also follow up with Urology for further management. Patient may need cystoscopy and urodynamics when patient is stable, if not possible patient may go home with Hernandez catheter and leg bag if it is okay to the Urology. We will follow with you. Thank you for allowing me to participate in your patient's care. Delfin Gipson MD
[2017-08-22] MEDS: (Novolin R) Insulin Human Regular 100 units/ml vial SC SCH ×4 (08:08→21:40)
[2017-08-22 09:17] LABS: BASO # 0.1 K/uL (0.0-0.2); BASO % 0.9 % (0.0-2.0); EOS # 0.3 K/uL (0.0-0.7); EOS % 3.7 % (0.0-4.0); HEMOGLOBIN 11.1 g/dL (12.0-18.0); LYMPH # 1.5 K/uL (1.0-4.3); LYMPH % 17.1 % (20.0-40.0); MEAN CELL VOLUME 88.8 fL (80.0-94.0); MEAN CORPUSCULAR HGB CONC 33.7 g/dL (33.0-37.0); MEAN PLATELET VOLUME 7.2 fL (7.2-11.7); MONO # 0.5 K/uL (0.0-0.8); MONO % 6.3 % (0.0-10.0); NEUT # 6.2 K/uL (1.8-7.0); RBC 3.69 Mil/uL (4.40-5.90); RED CELL DISTRIBUTION WIDTH 15.9 % (11.5-14.5); WHITE BLOOD COUNT 8.7 K/uL (4.8-10.8)
[2017-08-22 09:29] LABS: INR 1.3; PROTHROMBIN TIME 14.2 SECONDS (9.7-12.2)
[2017-08-22 09:37] LABS: ALB/GLOB RATIO 1.2 (1.0-2.1); ALBUMIN 3.4 g/dL (3.5-5.0); ALT/SGPT 27 U/L (21-72); AST/SGOT 31 U/L (17-59); BLOOD UREA NITROGEN 6 mg/dL (9-20); CALCIUM 8.6 mg/dl (8.6-10.4); GFR AFRICAN-AMERICAN > 60; GFR NON-AFRICAN AMERICAN > 60
[2017-08-22] MEDS ORDERED: Gentamicin 160 MG in Sodium Chloride 0.9% 100 ML IVPB ONE (10:30)
[2017-08-22] MEDS: Ranolazine 500 mg Extended Release Tablets PO SCH ×2 (10:30→17:45)
[2017-08-22] MEDS ORDERED: Lidocaine 2% Jelly (Uro-Jet) ONE (10:32)
[2017-08-22] MEDS ORDERED: Ciprofloxacin 400mg/200ml D5W 400 MG/200 ML BAG IVPB ONE (10:32)
[2017-08-22] MEDS ORDERED: Midazolam 2 MG/2 ML VIAL ONE (10:46)
--- NOTE | 2017-08-22 11:04 | PCM.SURG1 ---
Surgeon's Initial Post Op Note - Surgeon's Notes Surgeon: Wesley Public Relations Supervisor: Navya Type of Anesthesia: IV Sedation Anesthesia Administered By: staff Pre-Operative Diagnosis: BPH Urinary retention Operative Findings: EP with ALLEN Post-Operative Diagnosis: BPH Urinary Retention Operation Performed: BPH Urinary retention Specimen/Specimens Removed: na Estimated Blood Loss: EBL {In ML}: 0 Blood Products Given: N/A Drains Used: No Drains Post-Op Condition: Good Date of Surgery/Procedure: 08/22/17 Time of Surgery/Procedure: 11:03
--- NOTE | 2017-08-22 11:07 | CP.PCM.PN ---
Subjective - Date & Time of Evaluation Date of Evaluation: 08/22/17 Time of Evaluation: 11:05 - Subjective Subjective: Considering pts multiple med problems and Enlarged prostate on CT and cystoscopy would suggest Discharging with capellan on flomax and proscar for a voiding trial after 1 month. Wesley Objective - Vital Signs/Intake and Output Vital Signs (last 24 hours): Temp Pulse Resp BP Pulse Ox 98.2 F 60 20 147/65 95 08/22/17 07:50 08/22/17 07:50 08/22/17 07:50 08/22/17 07:50 08/22/17 07:50 Intake and Output: 08/22/17 08/22/17 06:59 18:59 Intake Total 1100 0 Output Total 2400 Balance -1300 0 - Medications Medications: Current Medications Amiodarone HCl (Cordarone) 200 mg PO Q12 [facility] Last Admin: 08/21/17 21:40 Dose: 200 mg Carvedilol (Coreg) 12.5 mg PO Q12 [facility] Last Admin: 08/21/17 21:41 Dose: 12.5 mg Enalapril Maleate (Vasotec) 10 mg PO DAILY [facility] Last Admin: 08/21/17 09:55 Dose: 10 mg Famotidine (Pepcid) 20 mg PO DAILY [facility] Last Admin: 08/21/17 09:54 Dose: 20 mg Finasteride (Proscar) 5 mg PO DAILY [facility] Last Admin: 08/21/17 09:55 Dose: 5 mg Gabapentin (Neurontin) 100 mg PO BID [facility] Last Admin: 08/21/17 17:55 Dose: 100 mg Sodium Chloride (Sodium Chloride 0.45%) 1,000 mls @ 70 mls/hr IV .[id number] [facility] Last Admin: 08/21/17 23:21 Dose: 70 mls/hr Gentamicin Sulfate 160 mg/ (Sodium Chloride) 104 mls @ 104 mls/hr IVPB ONCE ONE Stop: 08/22/17 11:29 Lactated Ringer's (Lactated Ringer's) 1,000 mls @ 100 mls/hr IV .Q10H [facility] Insulin Glargine (Lantus) 40 unit SC HS [facility] Last Admin: 08/21/17 21:43 Dose: 40 u Insulin Human Regular (Novolin R) 0 unit SC [facility] PRN Reason: Protocol Last Admin: 08/22/17 08:08 Dose: Not Given Nitroglycerin (Nitrostat Sl Tab) 0.4 mg SL Q4H PRN PRN Reason: chest pain Ranolazine (Ranexa) 1,000 mg PO BID [facility] Last Admin: 08/21/17 18:06 Dose: 1,000 mg Rosuvastatin Calcium (Crestor) 40 mg PO HS [facility] Last Admin: 08/21/17 21:40 Dose: 40 mg Sitagliptin Phosphate (Januvia) 50 mg PO BID [facility] Last Admin: 08/21/17 17:56 Dose: 50 mg Spironolactone (Aldactone) 25 mg PO BID [facility] Last Admin: 08/21/17 17:55 Dose: 25 mg Tamsulosin HCl (Flomax) 0.4 mg PO DAILY [facility] Last Admin: 08/21/17 09:55 Dose: 0.4 mg Ticagrelor (Brilinta) 90 mg PO BID [facility] Last Admin: 08/22/17 09:47 Dose: Not Given - Labs Labs: 08/22/17 09:12 08/22/17 09:12 PT 14.2 SECONDS (9.7-12.2) H 08/22/17 09:12 INR 1.3 08/22/17 09:12 APTT 29 SECONDS (21-34) 08/22/17 09:12
[2017-08-22] MEDS ORDERED: HYDROmorphone 0.5 mg/0.5 ml ISec IVP PRN (11:29)
--- NOTE | 2017-08-22 12:20 | CP.PCM.PN ---
Subjective - Date & Time of Evaluation Date of Evaluation: 08/22/17 Time of Evaluation: 12:19 - Subjective Subjective: pt is s een and examined, follow up consult is dictated #[id number] s/p cysto consider antivert prn for dizzyness Objective - Vital Signs/Intake and Output Vital Signs (last 24 hours): Temp Pulse Resp BP Pulse Ox 98.2 F 62 13 146/64 100 08/22/17 07:50 08/22/17 11:30 08/22/17 11:30 08/22/17 11:30 08/22/17 11:30 Intake and Output: 08/22/17 08/22/17 06:59 18:59 Intake Total 1100 270 Output Total 2400 Balance -1300 270 - Medications Medications: Current Medications Amiodarone HCl (Cordarone) 200 mg PO Q12 [facility] Last Admin: 08/21/17 21:40 Dose: 200 mg Carvedilol (Coreg) 12.5 mg PO Q12 [facility] Last Admin: 08/21/17 21:41 Dose: 12.5 mg Enalapril Maleate (Vasotec) 10 mg PO DAILY [facility] Last Admin: 08/21/17 09:55 Dose: 10 mg Famotidine (Pepcid) 20 mg PO DAILY [facility] Last Admin: 08/21/17 09:54 Dose: 20 mg Finasteride (Proscar) 5 mg PO DAILY [facility] Last Admin: 08/21/17 09:55 Dose: 5 mg Gabapentin (Neurontin) 100 mg PO BID [facility] Last Admin: 08/21/17 17:55 Dose: 100 mg Hydromorphone HCl (Dilaudid) 0.5 mg IVP Q10M PRN PRN Reason: Pain, moderate (4-7) Stop: 08/22/17 13:31 Sodium Chloride (Sodium Chloride 0.45%) 1,000 mls @ 70 mls/hr IV .[id number] [facility] Last Admin: 08/21/17 23:21 Dose: 70 mls/hr Lactated Ringer's (Lactated Ringer's) 1,000 mls @ 100 mls/hr IV .Q10H [facility] Sodium Chloride (Sodium Chloride 0.9%) 1,000 mls @ 100 mls/hr IV .Q10H [facility] Insulin Glargine (Lantus) 40 unit SC HS [facility] Last Admin: 08/21/17 21:43 Dose: 40 u Insulin Human Regular (Novolin R) 0 unit SC [facility] PRN Reason: Protocol Last Admin: 08/22/17 08:08 Dose: Not Given Nitroglycerin (Nitrostat Sl Tab) 0.4 mg SL Q4H PRN PRN Reason: chest pain Ondansetron HCl (Zofran Inj) 4 mg IVP ONCE PRN PRN Reason: Nausea/Vomiting Stop: 08/22/17 13:33 Ranolazine (Ranexa) 1,000 mg PO BID [facility] Last Admin: 08/21/17 18:06 Dose: 1,000 mg Rosuvastatin Calcium (Crestor) 40 mg PO HS [facility] Last Admin: 08/21/17 21:40 Dose: 40 mg Sitagliptin Phosphate (Januvia) 50 mg PO BID [facility] Last Admin: 08/21/17 17:56 Dose: 50 mg Spironolactone (Aldactone) 25 mg PO BID [facility] Last Admin: 08/21/17 17:55 Dose: 25 mg Tamsulosin HCl (Flomax) 0.4 mg PO DAILY [facility] Last Admin: 08/21/17 09:55 Dose: 0.4 mg Ticagrelor (Brilinta) 90 mg PO BID [facility] Last Admin: 08/22/17 09:47 Dose: Not Given - Labs Labs: 08/22/17 09:12 08/22/17 09:12 PT 14.2 SECONDS (9.7-12.2) H 08/22/17 09:12 INR 1.3 08/22/17 09:12 APTT 29 SECONDS (21-34) 08/22/17 09:12
[2017-08-22] MEDS: Sodium Chloride 0.9% 1,000 ML IV SCH ×2 (13:53→22:15)
--- NOTE | 2017-08-22 14:16 | CP.PCM.PN ---
Subjective - Date & Time of Evaluation Date of Evaluation: 08/22/17 Time of Evaluation: 14:13 - Subjective Subjective: post cysto. urology eval noted. for capellan cath 1 month and f/u with him. dizziness. Objective - Vital Signs/Intake and Output Vital Signs (last 24 hours): Temp Pulse Resp BP Pulse Ox 97.9 F 60 11 L 147/69 100 08/22/17 12:00 08/22/17 12:00 08/22/17 12:00 08/22/17 13:49 08/22/17 12:00 Intake and Output: 08/22/17 08/22/17 06:59 18:59 Intake Total 1100 354 Output Total 2400 100 Balance -1300 254 - Medications Medications: Current Medications Amiodarone HCl (Cordarone) 200 mg PO Q12 [facility] Last Admin: 08/22/17 10:30 Dose: Not Given Carvedilol (Coreg) 12.5 mg PO Q12 [facility] Last Admin: 08/22/17 10:30 Dose: Not Given Enalapril Maleate (Vasotec) 10 mg PO DAILY [facility] Last Admin: 08/22/17 13:49 Dose: 10 mg Famotidine (Pepcid) 20 mg PO DAILY [facility] Last Admin: 08/22/17 13:49 Dose: 20 mg Finasteride (Proscar) 5 mg PO DAILY [facility] Last Admin: 08/22/17 13:50 Dose: 5 mg Gabapentin (Neurontin) 100 mg PO BID [facility] Last Admin: 08/22/17 10:30 Dose: Not Given Sodium Chloride (Sodium Chloride 0.45%) 1,000 mls @ 70 mls/hr IV .[id number] [facility] Last Admin: 08/21/17 23:21 Dose: 70 mls/hr Lactated Ringer's (Lactated Ringer's) 1,000 mls @ 100 mls/hr IV .Q10H [facility] Sodium Chloride (Sodium Chloride 0.9%) 1,000 mls @ 100 mls/hr IV .Q10H [facility] Last Admin: 08/22/17 13:53 Dose: 100 mls/hr Insulin Glargine (Lantus) 40 unit SC HS [facility] Last Admin: 08/21/17 21:43 Dose: 40 u Insulin Human Regular (Novolin R) 0 unit SC ACHS [facility] PRN Reason: Protocol Last Admin: 08/22/17 13:50 Dose: 1 unit Nitroglycerin (Nitrostat Sl Tab) 0.4 mg SL Q4H PRN PRN Reason: chest pain Ranolazine (Ranexa) 1,000 mg PO BID [facility] Last Admin: 08/22/17 10:30 Dose: Not Given Rosuvastatin Calcium (Crestor) 40 mg PO HS [facility] Last Admin: 08/21/17 21:40 Dose: 40 mg Sitagliptin Phosphate (Januvia) 50 mg PO BID [facility] Last Admin: 08/22/17 10:30 Dose: Not Given Spironolactone (Aldactone) 25 mg PO BID [facility] Last Admin: 08/22/17 10:30 Dose: Not Given Tamsulosin HCl (Flomax) 0.4 mg PO DAILY [facility] Last Admin: 08/22/17 13:56 Dose: 0.4 mg Ticagrelor (Brilinta) 90 mg PO BID [facility] Last Admin: 08/22/17 09:47 Dose: Not Given - Labs Labs: 08/22/17 09:12 08/22/17 09:12 PT 14.2 SECONDS (9.7-12.2) H 08/22/17 09:12 INR 1.3 08/22/17 09:12 APTT 29 SECONDS (21-34) 08/22/17 09:12 - Constitutional Appears: No Acute Distress, Chronically Ill - Eye Exam Eye Exam: Normal appearance, PERRL - ENT Exam ENT Exam: Mucous Membranes Moist - Respiratory Exam Respiratory Exam: Clear to Ausculation Bilateral, NORMAL BREATHING PATTERN - GI/Abdominal Exam GI & Abdominal Exam: Soft - Exam Exam: Circumcision, NORMAL INSPECTION External exam: NORMAL EXTERNAL EXAM Speculum exam: NORMAL SPECULUM EXAM Bimanual exam: NORMAL BIMANUAL EXAM - Extremities Exam Extremities Exam: Full ROM, Normal Capillary Refill, Normal Inspection. absent : Joint Swelling, Pedal Edema - Neurological Exam Neurological Exam: Alert, Awake, CN II-XII Intact, Normal Gait, Oriented x3 - Psychiatric Exam Psychiatric exam: Normal Affect, Normal Mood Assessment and Plan - Assessment and Plan (Free Text) Assessment: bph. retention. dizziness. Plan: ct head. ct all meds.
--- NOTE | 2017-08-22 15:46 | CT ---
PROCEDURE: CT HEAD WITHOUT CONTRAST. HISTORY: Dizziness COMPARISON: 06/24/2011. TECHNIQUE: Axial computed tomography images were obtained through the head/brain without intravenous contrast. Radiation dose: Total exam DLP = 822.23 mGy-cm. This CT exam was performed using one or more of the following dose reduction techniques: Automated exposure control, adjustment of the mA and/or kV according to patient size, and/or use of iterative reconstruction technique. FINDINGS: HEMORRHAGE: No intracranial hemorrhage. BRAIN: There is focal cystic encephalomalacia in the right posterior occipital lobe. There are old infarctions in the right frontal subcortical white matter and left parietal lobe. There is no mass, mass effect or abnormal extra-axial fluid collection. There are coarse atherosclerotic calcifications in the cavernous carotid and vertebral arteries. VENTRICLES: There is mild age-related global parenchymal volume loss and proportionate enlargement of the ventricles and cortical sulci. CALVARIUM: The skull base and calvarium are normal. PARANASAL SINUSES: There is moderate mucoperiosteal thickening in the ethmoid air cells, mild mucosal thickening in the right frontal sinus and mild mucosal thickening in the left maxillary sinus with a small retention cyst/ polyp in the right anterior medial maxillary sinus. MASTOID AIR CELLS: Predominantly clear. OTHER FINDINGS: None. IMPRESSION: 1. No acute intracranial abnormality. 2. 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 3. 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 4. Mild chronic sinusitis as described above.
[2017-08-22] MEDS: Sodium Chloride 0.45% 1,000 ML IV SCH (17:53)
--- NOTE | 2017-08-22 20:00 | CON ---
DATE: REASON FOR CONSULTATION: I was called to see the patient because of acute urinary retention. HISTORY OF PRESENT ILLNESS: The patient was recently hospitalized at [facility] with cardiac issues. He had an implantable defibrillator pacemaker inserted. After returning home, the patient began having abdominal pain and difficulty urinating. He was sent to the emergency room at [facility]. He was evaluated there with CAT scan, which showed a massively dilated bladder and an enlarged prostate on other findings. A Hernnadez catheter was inserted and 2000 mL of urine was obtained. The patient denies significant voiding history prior to his admission to [facility]. It is not clear if he was on Flomax prior to coming into the hospital or it was started while the patient was in the hospital. The patient is not sure. PHYSICAL EXAMINATION: VITAL SIGNS: Blood pressure is 120/80, pulse is 60, respirations are 20, temperature is 98.6. Within normal limits. GENERAL: The patient is not obese. HEAD, EARS, EYES, NOSE, AND THROAT: Within normal limits. There is no erythema of the oral cavity or throat. Dentition is normal. NECK: Supple. There are no bruits or nodes. There are no masses. BREASTS: Normal. CHEST: Clear bilaterally. There are no rales or rhonchi. There are good breath sounds on both sides. There is no wheezing. There is a bandage in the upper left chest consistent with recently implanted pacemaker. HEART: Normal sinus rhythm. There is no significant cardiomegaly. There are no murmurs. There is no thrill. ABDOMEN: Soft and nontender. There are no masses or organomegaly. There are normal bowel sounds. VASCULAR: The patient has a scar in the left lower leg consistent with vascular harvest for previous CABG is well healed. There are good pulses in all extremities. There are no bruits. SKIN: Clear. There are no eruptions. There is no erythema. No evidence of cellulitis. : The patient is uncircumcised. Meatus is adequate. Hernandez catheter in place. RECTAL: Examination shows a 3+ non-nodular prostate without induration. There is good rectal sphincter tone. PSYCHIATRIC: Evaluation is normal. The patient is awake, alert, and oriented x3. There is no evidence of depression or suicidal thoughts. SOCIAL AND FAMILY HISTORY: The patient lives at [facility] with the family. Not a smoker and has not had a drink in the last year. He does not use any drug or other [id number] medications. LABORATORY DATA: I have reviewed the patient's CAT scan films and reports as well as his laboratory data including a normal PSA and normal creatinine. We have reviewed all the other laboratory data include the urine culture. IMPRESSION: Urinary retention secondary to benign prostatic hypertrophy with possible some component of diabetic neurogenic bladder. PLAN: We will schedule the patient for cystoscopy when he is medically cleared. We have reviewed the patient's medications and previous medication history. Shaw Olson MD
--- NOTE | 2017-08-22 21:38 | OP ---
PROCEDURE DATE: 08/22/2017 PREOPERATIVE DIAGNOSES: Urinary retention and benign prostatic hypertrophy. POSTOPERATIVE DIAGNOSES: Urinary retention and benign prostatic hypertrophy. PROCEDURE: Cystoscopy. DESCRIPTION OF PROCEDURE: The procedure is as follows. The patient was asked to sign a detailed informed consent. He is aware of the risks and complications and special risk due to his cardiac history and the alternate methods of evaluating a large prostate. He was willing to accept the risks and was brought into the room and draped and prepped in the usual manner. Time-out was taken according to the rules and regulations of [facility]. A 2% Xylocaine gel was instilled per urethra, and the patient was cystoscoped with a #17 Storz panendoscope. The pendulous and membranous urethra was normal. The prostatic urethra showed trilobar hypertrophy with a high median bar in a small median lobe. Bladder was entered atraumatically. There was +3 trabeculation. No evidence of diverticulum, tumor, or fistula. Both ureteral orifices efflux clear urine. Bladder was full and #18 Hernandez catheter was reinserted. Based on the above findings and his significant medical history, I would suggest the patient be discharged with the Hernandez, on Proscar voiding trial in approximately one month. If the patient fails to void, he may need transurethral resection of the prostate if medical condition is stable and the patient can be cleared. Shaw Olson MD
[2017-08-22] MEDS: (Lantus) Insulin Glargine, Recombinant SC SCH (22:02)
[2017-08-22] MEDS: Lactated Ringer's 1,000 ML IV SCH (22:12)
--- NOTE | 2017-08-22 22:50 | CARD ---
APPROVED REPORT EXAM: Two-dimensional and M-mode echocardiogram with Doppler and color Doppler. Other Information Quality : GoodRhythm : INDICATION Dyspnea Chest Pain S/P DEFIBRILLATOR 16 DAYS AGO RISK FACTORS Hypertension Hyperlipidemia Diabetes 2D DIMENSIONS IVSd0.9 (0.7-1.1cm)LVDd5.3 (3.9-5.9cm) PWd0.9 (0.7-1.1cm)LVDs4.5 (2.5-4.0cm) FS (%) 14.5 %LVEF (%)30.6 (>50%) M-Mode DIMENSIONS Left Atrium (MM)4.19 (2.5-4.0cm)Aortic Root3.20 (2.2-3.7cm) Aortic Cusp Exc.1.95 (1.5-2.0cm) Mitral Valve MV E Trzrsrvn293.7cm/sMV A Kmwawkkr33.0cm/sE/A ratio2.5 TDI E/Lateral E'0.0E/Medial E'0.0 Tricuspid Valve TR Peak [id number]/sTR Peak Gr.[id number] LEFT VENTRICLE The left ventricle is normal size. There is normal left ventricular wall thickness. Left ventricle systolic function is moderately to severely impaired. The Ejection Fraction is 30-35%. There is global hypokinesis of the left ventricle. The left ventricular diastolic function is normal. RIGHT VENTRICLE The right ventricle is normal size. There is normal right ventricular wall thickness. Systolic function is moderately to severely reduced. There is a pacemaker lead in the right ventricle. ATRIA The left atrium is moderately dilated. The right atrium size is normal. The interatrial septum bows toward right atrium consistent with elevated left atrial pressure. The discontinuity of the interatrial septum is suggestive of an atrial septal defect. AORTIC VALVE The aortic valve is normal in structure. No aortic regurgitation is present. There is no aortic valvular stenosis. MITRAL VALVE The mitral valve is normal in structure. There is no mitral valve stenosis. Mitral regurgitation is mild. TRICUSPID VALVE The tricuspid valve is normal in structure. There is mild to moderate tricuspid regurgitation. Right ventricular systolic pressure is estimated at 50-60 mmHg. There is moderate pulmonary hypertension. PULMONIC VALVE The pulmonic valve is not well visualized. There is mild pulmonic valvular regurgitation. GREAT VESSELS The aortic root is normal in size. PERICARDIAL EFFUSION There is no significant pericardial effusion. <Conclusion> Left ventricle systolic function is moderately to severely impaired. The Ejection Fraction is 30-35%. The discontinuity of the interatrial septum is suggestive of an atrial septal defect. Suggest ANETA. No aortic regurgitation is present. Mitral regurgitation is mild. There is mild to moderate tricuspid regurgitation. There is moderate pulmonary hypertension. There is mild pulmonic valvular regurgitation.
--- NOTE | 2017-08-22 23:11 | CP.PCM.PN ---
Subjective - Date & Time of Evaluation Date of Evaluation: 08/22/17 Time of Evaluation: 13:10 - Subjective Subjective: Patient seen and evaluated Denies chest pain and dyspnea Objective - Vital Signs/Intake and Output Vital Signs (last 24 hours): Temp Pulse Resp BP Pulse Ox 97.9 F 62 19 113/66 99 08/22/17 15:00 08/22/17 15:18 08/22/17 15:00 08/22/17 22:00 08/22/17 15:18 Intake and Output: 08/22/17 08/23/17 18:59 06:59 Intake Total 734 Output Total 975 Balance -241 - Medications Medications: Current Medications Amiodarone HCl (Cordarone) 200 mg PO Q12 [facility] Last Admin: 08/22/17 22:01 Dose: 200 mg Carvedilol (Coreg) 12.5 mg PO Q12 [facility] Last Admin: 08/22/17 22:00 Dose: 12.5 mg Enalapril Maleate (Vasotec) 10 mg PO DAILY [facility] Last Admin: 08/22/17 13:49 Dose: 10 mg Famotidine (Pepcid) 20 mg PO DAILY [facility] Last Admin: 08/22/17 13:49 Dose: 20 mg Finasteride (Proscar) 5 mg PO DAILY [facility] Last Admin: 08/22/17 13:50 Dose: 5 mg Gabapentin (Neurontin) 100 mg PO BID [facility] Last Admin: 08/22/17 17:44 Dose: 100 mg Lactated Ringer's (Lactated Ringer's) 1,000 mls @ 100 mls/hr IV .Q10H [facility] Last Admin: 08/22/17 22:12 Dose: Not Given Sodium Chloride (Sodium Chloride 0.9%) 1,000 mls @ 100 mls/hr IV .Q10H [facility] Last Admin: 08/22/17 22:15 Dose: Not Given Insulin Glargine (Lantus) 40 unit SC HS [facility] Last Admin: 08/22/17 22:02 Dose: 40 units Insulin Human Regular (Novolin R) 0 unit SC ACHS [facility] PRN Reason: Protocol Last Admin: 08/22/17 21:40 Dose: Not Given Nitroglycerin (Nitrostat Sl Tab) 0.4 mg SL Q4H PRN PRN Reason: chest pain Ranolazine (Ranexa) 1,000 mg PO BID [facility] Last Admin: 08/22/17 17:45 Dose: 1,000 mg Rosuvastatin Calcium (Crestor) 40 mg PO HS [facility] Last Admin: 08/22/17 22:00 Dose: 40 mg Sitagliptin Phosphate (Januvia) 50 mg PO BID [facility] Last Admin: 08/22/17 17:44 Dose: 50 mg Spironolactone (Aldactone) 25 mg PO BID [facility] Last Admin: 08/22/17 17:44 Dose: 25 mg Tamsulosin HCl (Flomax) 0.4 mg PO DAILY [facility] Last Admin: 08/22/17 13:56 Dose: 0.4 mg Ticagrelor (Brilinta) 90 mg PO BID [facility] Last Admin: 08/22/17 17:44 Dose: 90 mg - Labs Labs: 08/22/17 09:12 08/22/17 09:12 PT 14.2 SECONDS (9.7-12.2) H 08/22/17 09:12 INR 1.3 08/22/17 09:12 APTT 29 SECONDS (21-34) 08/22/17 09:12
--- NOTE | 2017-08-23 02:44 | PN ---
DATE: 08/22/2017 The patient is located in room #551, bed A. REQUESTED BY: Sheyla Grover MD SUBJECTIVE: Mr. Guerrero is a 62-year-old elderly male with a past medical history significant for longstanding hypertension, diabetes, hyperlipidemia, coronary artery disease status post CABG, status post questionable cardiac arrest and pass-out and subsequently admitted to [facility] about 2 weeks ago, status post cath and stent placement. From there, patient was transferred to [facility] for status post AICD placement; recently was admitted to [facility] with bladder outlet obstruction, difficult to void for 1 day and the patient was retaining about 2.5 liters of urine status post Hernandez catheter placement. The patient underwent for cystoscopy today, which confirmed BPH with urinary retention and Hernandez catheter was changed and the patient was cleared from the urological standpoint for possible discontinuing with Hernandez catheter and follow up with Dr. Benz in 1 month. The patient denies any headache, dizziness, chest pain while lying. Patient complains of dizziness while standing and when he tried to ambulate. No chest pain. No palpitations. OBJECTIVE: VITAL SIGNS: As follows, blood pressure 147/69, pulse 61, respirations 19, temperature 97.9, saturation 100%. Height 5 feet 4 inches, weight is 154 pounds. GENERAL: Mr. Guerrero is a 62-year-old elderly male, moderately-built, moderately-nourished, not in distress. HEENT: Pupils are normal, reactive to light and accommodation. Conjunctiva pink. Sclerae are anicteric. Tongue is moist. Trachea is midline. LUNGS: Symmetric on both sides. Bilateral breath sounds present. Clear on auscultation. CVS: [place] at the fifth intercostal space and midclavicular line. S1, S2 audible. No murmur or gallop. The patient has a midsternal scar present and also has keloid status post left subclavian region AICD. ABDOMEN: Soft, tympanic. No guarding. No rigidity. No hepatosplenomegaly. ONLINE PRODUCER: The patient is alert, awake, oriented x3. Nonfocal neuro examination. Cranial nerves II through grossly intact. Sensory and motor system is within normal limits. EXTREMITIES: No cyanosis, no clubbing, no edema. CURRENT MEDICATIONS: Include as follows, Aldactone 25 mg p.o. b.i.d., Brilinta 90 mg p.o. b.i.d., amiodarone 200 mg p.o. q.12h., Coreg 12.5 mg p.o. q.12h., Crestor 40 mg p.o. at bedtime, Flomax 0.4 mg daily, Januvia 50 mg p.o. b.i.d., IV fluids Ringer lactated 100 mL/hour, Lantus 40 units subcutaneous at bedtime, Neurontin 100 mg p.o. b.i.d., and Nitrostat sublingual 0.4 mg p.o. q.4h. p.r.n., Pepcid 20 mg p.o. daily, Proscar 5 mg p.o. daily, Ranexa 1000 mg p.o. b.i.d., enalapril 10 mg p.o. daily. LABORATORY DATA: His current lab data is as follows; WBC 8.7, hemoglobin 11.1, hematocrit is 32.8, platelets 341. PT 14.2, PTT 29. Sodium 136, potassium 5, chloride 100, CO2 25, BUN 6, creatinine 0.9, glucose 145, calcium 8.6. Total bili 0.4, AST 31, ALT 27, alkaline phos 99, total protein 6.2. ASSESSMENT AND PLAN: In summary, Mr. Guerrero is a 62-year-old elderly male with hypertension, diabetes, coronary artery disease, hyperlipidemia, status post coronary artery bypass graft, multiple angioplasty and stents, status post recent pass-out and status post cath, stent placement, and automatic implantable cardioverter defibrillator placement, benign prostatic hypertrophy with urinary retention, hyperkalemia, and hyponatremia. 1. Status post hyperkalemia. 2. Status post hyponatremia. 3. Hypertension. 4. Diabetes. 5. Benign prostatic hypertrophy. The patient underwent cystoscopy today, confirms the benign prostatic hypertrophy and continue Hernandez catheter with bedside bag and follow with Urology as an outpatient and continue Proscar and Flomax. Renal function is stable and serum sodium is stable. We will follow up as needed. Thank you for allowing me to participate in your patient's care. The patient is stable from the renal standpoint to discharge and consider Antivert 12.5 mg p.o. b.i.d. p.r.n. for dizziness. Delfin Gipson MD
[2017-08-23] MEDS: Sodium Chloride 0.9% 1,000 ML IV SCH ×2 (05:37→07:32)
[2017-08-23] MEDS: (Novolin R) Insulin Human Regular 100 units/ml vial SC SCH ×3 (07:31→17:52)
[2017-08-23] MEDS: Lactated Ringer's 1,000 ML IV SCH (07:31)
[2017-08-23 07:34] LABS: BASO # 0.1 K/uL (0.0-0.2); BASO % 0.6 % (0.0-2.0); EOS # 0.4 K/uL (0.0-0.7); EOS % 4.6 % (0.0-4.0); HEMOGLOBIN 10.2 g/dL (12.0-18.0); LYMPH # 1.4 K/uL (1.0-4.3); LYMPH % 15.2 % (20.0-40.0); MEAN CORPUSCULAR HEMOGLOBIN 30.2 pg (27.0-31.0); MEAN CORPUSCULAR HGB CONC 34.3 g/dL (33.0-37.0); MEAN PLATELET VOLUME 7.2 fL (7.2-11.7); MONO # 0.9 K/uL (0.0-0.8); MONO % 9.4 % (0.0-10.0); NEUT # 6.5 K/uL (1.8-7.0); NEUT % 70.2 % (50.0-75.0); NRBC % 0.1 % (0.0-2.0); RBC 3.37 Mil/uL (4.40-5.90); WHITE BLOOD COUNT 9.2 K/uL (4.8-10.8)
[2017-08-23 07:48] LABS: ALB/GLOB RATIO 1.2 (1.0-2.1); ALBUMIN 3.1 g/dL (3.5-5.0); ALT/SGPT 32 U/L (21-72); AST/SGOT 22 U/L (17-59); BLOOD UREA NITROGEN 7 mg/dL (9-20); CALCIUM 8.4 mg/dl (8.6-10.4); GFR AFRICAN-AMERICAN > 60; GFR NON-AFRICAN AMERICAN > 60
[2017-08-23] MEDS: Ranolazine 500 mg Extended Release Tablets PO SCH ×2 (10:11→17:51)
[2017-08-23] MEDS ORDERED: Pneumococcal 23-Valent Vaccine IM ONE (12:23)
--- NOTE | 2017-08-23 12:36 | CP.PCM.PN ---
Subjective - Date & Time of Evaluation Date of Evaluation: 08/23/17 Time of Evaluation: 12:33 - Subjective Subjective: CONDITION STABLE. PT ABLE TO WALK STEADILY. Objective - Vital Signs/Intake and Output Vital Signs (last 24 hours): Temp Pulse Resp BP Pulse Ox 97.4 F L 60 20 132/71 97 08/23/17 08:00 08/23/17 08:00 08/23/17 08:00 08/23/17 10:06 08/23/17 08:00 Intake and Output: 08/23/17 08/23/17 06:59 18:59 Output Total 400 Balance -400 - Medications Medications: Current Medications Amiodarone HCl (Cordarone) 200 mg PO Q12 [facility] Last Admin: 08/23/17 10:11 Dose: 200 mg Carvedilol (Coreg) 12.5 mg PO Q12 [facility] Last Admin: 08/23/17 10:06 Dose: 12.5 mg Enalapril Maleate (Vasotec) 10 mg PO DAILY [facility] Last Admin: 08/23/17 10:06 Dose: 10 mg Famotidine (Pepcid) 20 mg PO DAILY [facility] Last Admin: 08/23/17 10:05 Dose: 20 mg Finasteride (Proscar) 5 mg PO DAILY [facility] Last Admin: 08/23/17 10:06 Dose: 5 mg Gabapentin (Neurontin) 100 mg PO BID [facility] Last Admin: 08/23/17 10:05 Dose: 100 mg Lactated Ringer's (Lactated Ringer's) 1,000 mls @ 100 mls/hr IV .Q10H [facility] Last Admin: 08/23/17 07:31 Dose: Not Given Sodium Chloride (Sodium Chloride 0.9%) 1,000 mls @ 100 mls/hr IV .Q10H [facility] Last Admin: 08/23/17 07:32 Dose: Not Given Insulin Glargine (Lantus) 40 unit SC HS [facility] Last Admin: 08/22/17 22:02 Dose: 40 units Insulin Human Regular (Novolin R) 0 unit SC ACHS [facility] PRN Reason: Protocol Last Admin: 08/23/17 07:31 Dose: Not Given Nitroglycerin (Nitrostat Sl Tab) 0.4 mg SL Q4H PRN PRN Reason: chest pain Ranolazine (Ranexa) 1,000 mg PO BID [facility] Last Admin: 08/23/17 10:11 Dose: 1,000 mg Rosuvastatin Calcium (Crestor) 40 mg PO HS [facility] Last Admin: 08/22/17 22:00 Dose: 40 mg Sitagliptin Phosphate (Januvia) 50 mg PO BID [facility] Last Admin: 08/23/17 10:05 Dose: 50 mg Spironolactone (Aldactone) 25 mg PO BID [facility] Last Admin: 08/23/17 10:05 Dose: 25 mg Tamsulosin HCl (Flomax) 0.4 mg PO DAILY [facility] Last Admin: 08/23/17 10:05 Dose: 0.4 mg Ticagrelor (Brilinta) 90 mg PO BID [facility] Last Admin: 08/23/17 10:11 Dose: 90 mg - Labs Labs: 08/23/17 07:01 08/23/17 06:59 PT 14.2 SECONDS (9.7-12.2) H 08/22/17 09:12 INR 1.3 08/22/17 09:12 APTT 29 SECONDS (21-34) 08/22/17 09:12 - Constitutional Appears: No Acute Distress, Chronically Ill - Eye Exam Eye Exam: Normal appearance, PERRL - ENT Exam ENT Exam: Mucous Membranes Moist - Neck Exam Neck Exam: Full ROM, Normal Inspection. absent: Lymphadenopathy - Respiratory Exam Respiratory Exam: Clear to Ausculation Bilateral, NORMAL BREATHING PATTERN - Cardiovascular Exam Cardiovascular Exam: REGULAR RHYTHM, +S1, +S2. absent: Murmur - GI/Abdominal Exam GI & Abdominal Exam: Soft, Normal Bowel Sounds. absent: Tenderness - Extremities Exam Extremities Exam: Full ROM, Normal Capillary Refill, Normal Inspection. absent : Joint Swelling, Pedal Edema - Neurological Exam Neurological Exam: Alert, Awake, CN II-XII Intact, Normal Gait, Oriented x3 - Psychiatric Exam Psychiatric exam: Normal Affect, Normal Mood Assessment and Plan - Assessment and Plan (Free Text) Assessment: RETENTION OF URINE. CAD AND CHF WITH SYSTOLIC DYSFUNCTION. AICD. DM. Plan: DISCHARGE HOME. F/U WITH DR. YUNG [address] MEDS[address] CT GONZALEZ CATH BPH.
--- NOTE | 2017-08-23 12:44 | CP.PCM.PN ---
Subjective - Date & Time of Evaluation Date of Evaluation: 08/23/17 Time of Evaluation: 12:44 - Subjective Subjective: PATIENT WAS ADMITTED FOR HYPONATREMIA AND DYSPNEA AAOX3 SITTING AT THE BEDSIDE DENIES CHEST PAIN, DIZZINESS, SOB NO SIGN OF DISTRESS NOTED Objective - Vital Signs/Intake and Output Vital Signs (last 24 hours): Temp Pulse Resp BP Pulse Ox 97.4 F L 60 20 132/71 97 08/23/17 08:00 08/23/17 08:00 08/23/17 08:00 08/23/17 10:06 08/23/17 08:00 Intake and Output: 08/23/17 08/23/17 06:59 18:59 Output Total 400 Balance -400 - Medications Medications: Current Medications Amiodarone HCl (Cordarone) 200 mg PO Q12 [facility] Last Admin: 08/23/17 10:11 Dose: 200 mg Carvedilol (Coreg) 12.5 mg PO Q12 [facility] Last Admin: 08/23/17 10:06 Dose: 12.5 mg Enalapril Maleate (Vasotec) 10 mg PO DAILY [facility] Last Admin: 08/23/17 10:06 Dose: 10 mg Famotidine (Pepcid) 20 mg PO DAILY [facility] Last Admin: 08/23/17 10:05 Dose: 20 mg Finasteride (Proscar) 5 mg PO DAILY [facility] Last Admin: 08/23/17 10:06 Dose: 5 mg Gabapentin (Neurontin) 100 mg PO BID [facility] Last Admin: 08/23/17 10:05 Dose: 100 mg Lactated Ringer's (Lactated Ringer's) 1,000 mls @ 100 mls/hr IV .Q10H [facility] Last Admin: 08/23/17 07:31 Dose: Not Given Sodium Chloride (Sodium Chloride 0.9%) 1,000 mls @ 100 mls/hr IV .Q10H [facility] Last Admin: 08/23/17 07:32 Dose: Not Given Insulin Glargine (Lantus) 40 unit SC HS [facility] Last Admin: 08/22/17 22:02 Dose: 40 units Insulin Human Regular (Novolin R) 0 unit SC ACHS [facility] PRN Reason: Protocol Last Admin: 08/23/17 07:31 Dose: Not Given Nitroglycerin (Nitrostat Sl Tab) 0.4 mg SL Q4H PRN PRN Reason: chest pain Ranolazine (Ranexa) 1,000 mg PO BID [facility] Last Admin: 08/23/17 10:11 Dose: 1,000 mg Rosuvastatin Calcium (Crestor) 40 mg PO HS [facility] Last Admin: 08/22/17 22:00 Dose: 40 mg Sitagliptin Phosphate (Januvia) 50 mg PO BID [facility] Last Admin: 08/23/17 10:05 Dose: 50 mg Spironolactone (Aldactone) 25 mg PO BID [facility] Last Admin: 08/23/17 10:05 Dose: 25 mg Tamsulosin HCl (Flomax) 0.4 mg PO DAILY [facility] Last Admin: 08/23/17 10:05 Dose: 0.4 mg Ticagrelor (Brilinta) 90 mg PO BID [facility] Last Admin: 08/23/17 10:11 Dose: 90 mg - Labs Labs: 08/23/17 07:01 08/23/17 06:59 PT 14.2 SECONDS (9.7-12.2) H 08/22/17 09:12 INR 1.3 08/22/17 09:12 APTT 29 SECONDS (21-34) 08/22/17 09:12 Assessment and Plan - Assessment and Plan (Free Text) Assessment: PATIENT SEEN AND EXAMINED OCTAVIO SOUND CLEAR BOWEL SOUND POSITIVE ALL [facility] REPORT SHOW HYPONATREMIA RESOLVE DISCUSS WITH DR WAITE WHO AGREE AND CLEAR PATIENT TO DC FOLLOW UP WITH DR Latrell HARTMAN AT HIS OFFCIE IN 1-2 WEEKS ---CALL FOR YOUR APPOINTMENT FOLLOW UP WITH DR YUNG AT HIS OFFICE WITHIN 4 WEEKS ---CALL FOR YOUR APPOINTMENT ADDRESS YOUR GONZALEZ CATHETER AT YOUR VISIT Clean your genital area 2 times every day. Clean your catheter and the area around where it was inserted. ... Secure the catheter tube so you do not pull or move the catheter. This helps prevent pain and bladder spasms. ... Keep a closed drainage system. ACTIVITY TOLERATED CALL DR Latrell HARTMAN OR DR YUNG OR GO TO THE EMERGENCY ROOM IF SYMPTOMS RETURN OR WORSENING DISCUSS WITH PATIENT WHO AGREE AND VERBALIZED UNDERSTANDING
[2017-08-23 17:08] VITALS: BP 128/65; PULSE 62; RESP 19; TEMP 97.8; O2SAT 96
--- NOTE | 2017-08-24 22:59 | CARD ---
APPROVED REPORT EKG Measurement Heart [id number] <Conclusion> Atrial-paced rhythm with prolonged AV conduction Inferior infarct, age undetermined Cannot rule out Anterior infarct, age undetermined Abnormal ECG
--- NOTE | 2017-08-30 07:24 | DS ---
HISTORY OF PRESENT ILLNESS: This is a 62-year-old Irish male came to the emergency room with lower abdominal pain. The patient also has nausea and vomiting. The patient complained of paresthesia with hands and feet for the last two days. The patient has recently implanted defibrillator at [facility]. The patient also has constipation. The patient was taking Percocet. No history of chest pain or shortness of breath. The patient denies any headache, dizziness, or any fever. PAST MEDICAL HISTORY: History of severe coronary artery disease, benign prostatic hyperplasia, diabetes, hypertension, and hypercholesterolemia. The patient has recently stent kept at [facility]. PHYSICAL EXAMINATION: GENERAL: On admission, the patient was awake, comfortable. VITAL SIGNS: Normal vital signs. LUNGS: Clear. HEART: Within normal limits. ABDOMEN: Soft, nontender. No organomegaly. 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 HOSPITAL COURSE: The patient was having dark tarry colored stool, so GI consultation was obtained. The patient was negative for blood in the stool. GI evaluation was noted and advised to do colonoscopy when the patient is stable. Cardiology consult was obtained by Dr. Forbes. The patient was treated for congestive heart failure with systolic dysfunction. The patient also has retention of the urine for which Dr. Olson was consulted and has cystoscopy done. The patient was advised to go home with Hernandez catheter and follow up with Dr. Olson in about 4 weeks. The patient was discharged home with Hernandez catheter. All the medications were continued. FINAL DIAGNOSES: 1. Congestive heart failure with systolic dysfunction. 2. Coronary artery disease. 3. Automated implantable cardioverter-defibrillator implantation done. 4. Retention of the urine. 5. Diabetes mellitus. Sheyla Grover MD
== END 2017-08-23 18:31 | disposition home or self-care (01) | DRG 127 ==
LOC: C.ER 14:32 → C.9E 16:32 → C.5S 08-19 17:56
PROVIDERS: ADMIT Internal Medicine; ATTEND Internal Medicine
PROC: 0TJB8ZZ Inspection of Bladder, Via Natural or Artificial Opening Endoscopic (ICD-10-PCS; principal; 2017-08-22 10:30)
DX: I11.0 Hypertensive heart disease with heart failure (principal); E87.5 Hyperkalemia; I45.81 Long QT syndrome; E87.1 Hypo-osmolality and hyponatremia; Z95.1 Presence of aortocoronary bypass graft; Z86.74 Personal history of sudden cardiac arrest; E11.9 Type 2 diabetes mellitus without complications; D64.9 Anemia, unspecified; N13.30 Unspecified hydronephrosis; I50.23 Acute on chronic systolic (congestive) heart failure; N40.1 Benign prostatic hyperplasia with lower urinary tract symptoms; R33.8 Other retention of urine; Z95.810 Presence of automatic (implantable) cardiac defibrillator; Z95.5 Presence of coronary angioplasty implant and graft; I44.0 Atrioventricular block, first degree; I25.10 Atherosclerotic heart disease of native coronary artery without angina pectoris; E78.00 Pure hypercholesterolemia, unspecified; E78.5 Hyperlipidemia, unspecified; Z23 Encounter for immunization; N13.8 Other obstructive and reflux uropathy

== ENCOUNTER 2017-10-08 17:15 | Inpatient (IN) | payer MEDICAID ==
[2017-10-08 17:21] VITALS: BMI 27.4
[2017-10-08 17:42] LABS: BASO % 0.4 % (0.0-2.0); EOS # 0.4 K/uL (0.0-0.7); EOS % 5.2 % (0.0-4.0); HEMOGLOBIN 10.1 g/dL (12.0-18.0); LYMPH # 1.8 K/uL (1.0-4.3); LYMPH % 22.1 % (20.0-40.0); MEAN CORPUSCULAR HEMOGLOBIN 30.6 pg (27.0-31.0); MEAN CORPUSCULAR HGB CONC 32.9 g/dL (33.0-37.0); MEAN PLATELET VOLUME 8.1 fL (7.2-11.7); MONO # 0.8 K/uL (0.0-0.8); MONO % 10.3 % (0.0-10.0); NEUT # 5.1 K/uL (1.8-7.0); NRBC % 0.1 % (0.0-2.0); RBC 3.31 Mil/uL (4.40-5.90); WHITE BLOOD COUNT 8.2 K/uL (4.8-10.8)
[2017-10-08 17:44] LABS: ARTERIAL BLOOD GAS HCO3 24.7 mmol/L (21-28); ARTERIAL BLOOD GAS O2 SAT 99.8 % (95-98); ARTERIAL BLOOD GAS PCO2 33 mm/Hg (35-45); ARTERIAL BLOOD GAS PH 7.45 (7.35-7.45); ARTERIAL BLOOD GAS PO2 456 mm/Hg (80-100); ARTERIAL BLOOD GAS TCO2 23.9 mmol/L (22-28)
[2017-10-08 17:54] LABS: MEAN CELL VOLUME 92.9 fL (80.0-94.0)
[2017-10-08 17:59] LABS: INR 1.3
[2017-10-08 18:01] LABS: ALB/GLOB RATIO 1.1 (1.0-2.1); ALBUMIN 3.5 g/dL (3.5-5.0); ALT/SGPT 25 U/L (21-72); AST/SGOT 30 U/L (17-59); BLOOD UREA NITROGEN 12 mg/dL (9-20); CALCIUM 8.7 mg/dl (8.6-10.4); GFR AFRICAN-AMERICAN > 60; GFR NON-AFRICAN AMERICAN > 60
[2017-10-08 18:10] LABS: B-TYPE NATRIURETIC PEPTIDE 5410 pg/mL (0-900)
[2017-10-08] MEDS ORDERED: Nitroglycerin 2% Ointment Foilpak UD TOP STA (18:25)
[2017-10-08] MEDS ORDERED: Nitroglycerin 2% Ointment Foilpak UD TOP ONE (18:49)
--- NOTE | 2017-10-08 18:52 | RAD ---
PROCEDURE: CHEST RADIOGRAPH, 1 VIEW HISTORY: SOB COMPARISON: Comparison is made to 08/18/2017 FINDINGS: LUNGS: Moderate pulmonary vascular congestion is noted. PLEURA: Bilateral pleural effusions are noted larger on the right. CARDIOVASCULAR: Cardiomegaly is noted. There is a left-sided pacemaker in place. OSSEOUS STRUCTURES: No significant abnormalities. VISUALIZED UPPER ABDOMEN: Normal. OTHER FINDINGS: None. IMPRESSION: Moderate pulmonary vascular congestion and bilateral pleural effusion larger on the right. Correlate clinically for heart failure.
[2017-10-08 19:29] LABS: SQUAMOUS EPITHIAL 2 /hpf (0-5); URINE BACTERIA FEW (<OCC); URINE BILIRUBIN NEGATIVE (NEGATIVE); URINE BLOOD NEGATIVE (NEGATIVE); URINE CLARITY Hazy (Clear); URINE COLOR Yellow (YELLOW); URINE GLUCOSE (UA) 3+ mg/dL (Normal); URINE LEUKOCYTE ESTERASE 3+ Leu/uL (Negative); URINE PROTEIN 1+ mg/dL (NEGATIVE); URINE UROBILINOGEN NORMAL mg/dL (0.2-1.0)
--- NOTE | 2017-10-08 19:59 | C.PDOC ---
Time Seen by Provider: 10/08/17 17:23 Chief Complaint (Nursing): Shortness Of Breath History Per: Patient, EMS Onset/Duration Of Symptoms: Days (1) Current Symptoms Are (Timing): Worse Current Respiratory Medications: See Home Med List Severity: Severe Associated Symptoms: Ankle/Leg Swelling Additional History Per: Family, Prior Records Past Medical History Reviewed: Historical Data, Nursing Documentation, Vital Signs Vital Signs: Last Vital Signs Temp 97.3 F L 10/08/17 17:22 Pulse 88 10/08/17 17:45 Resp 24 10/08/17 17:22 BP 186/94 H 10/08/17 17:22 Pulse Ox 100 10/08/17 17:38 - Medical History PMH: Benign Prostatic Hyperplasia, Diabetes, HTN, Hypercholesterolemia Surgical History: CABG, Coronary Stent, Pacemaker - [facility] Procedures INSPECTION OF BLADDER, ENDO (08/18/17) Family History: States: Unknown Family Hx - Social History Hx Tobacco Use: No Hx Alcohol Use: No Hx Substance Use: No - Immunization History Hx Tetanus Toxoid Vaccination: No Hx Influenza Vaccination: Yes Hx Pneumococcal Vaccination: No Review Of Systems Except As Marked, All Systems Reviewed And Found Negative. Constitutional: Negative for: Fever Cardiovascular: Positive for: Edema. Negative for: Chest Pain Respiratory: Positive for: Shortness of Breath. Negative for: Hemoptysis Gastrointestinal: Negative for: Vomiting, Abdominal Pain Musculoskeletal: Negative for: Neck Pain, Back Pain Skin: Negative for: Rash Neurological: Negative for: Weakness, Numbness Physical Exam - Physical Exam Appears: In Acute Distress Skin: Normal Color, Warm, Dry, No Rash Head: Atraumatic, Normacephalic Eye(s): bilateral: PERRL, EOMI Neck: Normal ROM, Supple Cardiovascular: Rhythm Regular Respiratory: Rales Gastrointestinal/Abdominal: Soft, No Tenderness Extremity: Normal ROM, Pedal Edema Neurological/Psych: Oriented x3, Normal Motor, Normal Sensation ED Course And Treatment - Laboratory Results Result Diagrams: 10/08/17 17:36 10/08/17 17:36 Lab Interpretation: Abnormal Interpretation Of Abnormal: Elevated BNP ECG: Interpreted By Me, Viewed By Me ECG Rhythm: Sinus Rhythm, Nonspecific Changes Rate From EC O2 Sat by Pulse Oximetry: 100 (on BiPAP) - Radiology CXR: Viewed By Me, Read By Radiologist CXR Interpretation: Yes: Cardiomegaly, Other (CHF) Progress Note: Pt was placed on BiPAP upon arrival to the ER with improvement. Reassessment Condition: Improved Progress - Interventions Interventions:: Observation, Oxygen - Medications Administered Intravenous: Diuretic - Data Reviewed Data Reviewed: Lab, Diagnostic imaging, EKG, Old records - Patient Status Patient status: Partially improved - Critical Care Citical Care: Excluding Proc Time Critical Care Time: 60 minutes - Continuity of Care Discussed patient case with:: Patient, Family-HIPPA compliant, ED Nurse, PMD - Patient Plan Patient Plan: Admission, Telemetry Disposition Discussed With DrAnthony: Sheyla Grover Comment: He accepted pt on his service. Doctor Will See Patient In The: Hospital Counseled Patient/Family Regarding: Studies Performed, Diagnosis - Disposition Disposition: HOSPITALIZED Disposition Time: 20:06 Condition: SERIOUS - Clinical Impression Clinical Impression: Acute exacerbation of CHF (congestive heart failure)
--- NOTE | 2017-10-09 05:07 | HP ---
HISTORY OF PRESENT ILLNESS: This is a 62-year-old [place] male came to the emergency room with history of increasing shortness of breath and swelling of the legs. The patient denies having any chest pain. No history of dizziness. REVIEW OF SYSTEMS: CARDIOVASCULAR: Positive for shortness of breath. No chest pain. RESPIRATORY: Positive for shortness of breath. GI: Negative for nausea, vomiting, abdominal pain. 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 PAST HISTORY: History of benign prostatic hyperplasia, diabetes, hypertension, hypercholesterolemia, CABG, AICD, and severe coronary artery disease. MEDICATIONS: The patient's medications are reviewed by me. FAMILY HISTORY: No known inherited disease. SOCIAL HISTORY: Nonsmoker, nonalcoholic, no IVDA. ALLERGIES: NO KNOWN ALLERGY. PHYSICAL EXAMINATION: VITAL SIGNS: This is a 62-year-old [place] male, tachypneic, dyspneic with temperature 97.3, pulse 88, respirations 24, and blood pressure 186/94 mmHg, pulse ox is 100% on room air. HEENT: Normal. JVP is flat. Carotids, no bruits. LUNGS: No rales, no wheezing. HEART: S1 and S2 normal. No gallop, no murmur. ABDOMEN: Soft, nontender. No organomegaly. PATTERN LAYOUT WORKER: No focal neurological deficits. EXTREMITIES: No edema of the legs present. Lab work shows normal white cell count, hemoglobin 10.1. BMP is within normal limits. Blood sugar is 265. Chest x-ray shows moderate pulmonary congestion. IMPRESSION: Acute pulmonary edema. Congestive heart failure with diastolic dysfunction. PLAN: The patient will be admitted to the telemetry bed. We will give IV Lasix. We will continue all the medication. Other workup as needed. Sheyla Grover MD
[2017-10-09] MEDS: Ranolazine 500 mg Extended Release Tablets PO SCH ×2 (10:35→17:47)
--- NOTE | 2017-10-09 12:40 | CP.PCM.PN ---
Subjective - Date & Time of Evaluation Date of Evaluation: 10/09/17 Time of Evaluation: 12:38 - Subjective Subjective: feels much better. no sob. no chest pain. Objective - Vital Signs/Intake and Output Vital Signs (last 24 hours): Temp Pulse Resp BP Pulse Ox 97.9 F 75 20 136/74 98 10/09/17 09:00 10/09/17 09:00 10/09/17 09:00 10/09/17 10:37 10/09/17 09:00 Intake and Output: 10/09/17 10/09/17 06:59 18:59 Output Total 1500 Balance -1500 - Medications Medications: Current Medications Amiodarone HCl (Cordarone) 200 mg PO Q12 [facility] Last Admin: 10/09/17 10:35 Dose: 200 mg Aspirin (Ecotrin) 81 mg PO DAILY [facility] Last Admin: 10/09/17 10:35 Dose: 81 mg Carvedilol (Coreg) 12.5 mg PO Q12 [facility] Last Admin: 10/09/17 10:36 Dose: 12.5 mg Enalapril Maleate (Vasotec) 10 mg PO DAILY [facility] Last Admin: 10/09/17 10:36 Dose: 10 mg Famotidine (Pepcid) 20 mg PO DAILY [facility] Last Admin: 10/09/17 10:35 Dose: 20 mg Finasteride (Proscar) 5 mg PO DAILY [facility] Last Admin: 10/09/17 10:35 Dose: 5 mg Furosemide (Lasix) 40 mg IVP BID [facility] Last Admin: 10/09/17 10:37 Dose: 40 mg Gabapentin (Neurontin) 100 mg PO BID [facility] Last Admin: 10/09/17 10:36 Dose: 100 mg Heparin Sodium (Porcine) (Heparin) 5,000 units SC Q12 [facility] Insulin Aspart (Novolog) 0 unit SC ACHS [facility] PRN Reason: Protocol Insulin Glargine (Lantus) 12 unit SC HS [facility] Metformin HCl (Glucophage) 1,000 mg PO BIDCC [facility] Last Admin: 10/09/17 10:35 Dose: 1,000 mg Nitroglycerin (Nitrostat Sl Tab) 0.4 mg SL Q5MIN PRN PRN Reason: chest pain Ranolazine (Ranexa) 1,000 mg PO BID [facility] Last Admin: 10/09/17 10:35 Dose: 1,000 mg Rosuvastatin Calcium (Crestor) 40 mg PO HS [facility] Last Admin: 10/08/17 23:00 Dose: 40 mg Sitagliptin Phosphate (Januvia) 100 mg PO DAILY [facility] Last Admin: 10/09/17 10:35 Dose: 100 mg Spironolactone (Aldactone) 25 mg PO BID [facility] Last Admin: 10/09/17 10:36 Dose: 25 mg Tamsulosin HCl (Flomax) 0.4 mg PO BID [facility] Ticagrelor (Brilinta) 90 mg PO BID [facility] Last Admin: 10/09/17 10:34 Dose: 90 mg - Labs Labs: 10/08/17 17:36 10/08/17 17:36 PT 15.0 SECONDS (9.7-12.2) H 10/08/17 17:36 INR 1.3 10/08/17 17:36 APTT 23 SECONDS (21-34) 10/08/17 17:36 - Constitutional Appears: No Acute Distress, Chronically Ill - Eye Exam Eye Exam: EOMI, Normal appearance, PERRL Pupil Exam: NORMAL ACCOMODATION, PERRL - ENT Exam ENT Exam: Mucous Membranes Moist, Normal Exam - Neck Exam Neck Exam: Full ROM, Normal Inspection. absent: Lymphadenopathy - Respiratory Exam Respiratory Exam: Clear to Ausculation Bilateral, NORMAL BREATHING PATTERN - Cardiovascular Exam Cardiovascular Exam: REGULAR RHYTHM, +S1, +S2. absent: Murmur - GI/Abdominal Exam GI & Abdominal Exam: Soft, Normal Bowel Sounds. absent: Tenderness - Extremities Exam Extremities Exam: Full ROM, Normal Capillary Refill, Normal Inspection. absent : Joint Swelling, Pedal Edema - Back Exam Back Exam: NORMAL INSPECTION - Neurological Exam Neurological Exam: Alert, Awake, CN II-XII Intact, Normal Gait, Oriented x3 - Psychiatric Exam Psychiatric exam: Normal Affect, Normal Mood Assessment and Plan - Assessment and Plan (Free Text) Assessment: chf systolic and diastolic dysfunction. cad. dm. Plan: for diuretics. f/u chest x ray. labs.
[2017-10-09] MEDS: (Novolog) Insulin Aspart, Recombinant 100 u/ml 10 ml vial SC SCH ×3 (13:22→21:24)
--- NOTE | 2017-10-09 14:10 | RAD ---
HISTORY: CHF COMPARISON: Comparison made with prior study 10/08/2017 TECHNIQUE: Chest PA and lateral FINDINGS: LUNGS: Interval improvement previously noted pulmonary edema/CHF with decreased size of bilateral lower lobe alveolar-type infiltrates and bilateral effusions. PLEURA: As above. No pneumothorax apparent. CARDIOVASCULAR: Sternotomy wires and CABG clips is well as bipolar pacemaker/ defibrillator unchanged. Cardiac silhouette stable. OSSEOUS STRUCTURES: No significant abnormalities. VISUALIZED UPPER ABDOMEN: Normal. OTHER FINDINGS: None. IMPRESSION: Interval improvement previously noted pulmonary edema/CHF with decreased size of bilateral lower lobe alveolar-type infiltrates and bilateral effusions.
[2017-10-09] MEDS: (Lantus) Insulin Glargine, Recombinant SC SCH (21:54)
--- NOTE | 2017-10-10 02:11 | CARD ---
APPROVED REPORT EKG Measurement Heart [id number] <Conclusion> Normal sinus rhythm Possible Left atrial enlargement Inferior infarct, age undetermined Cannot rule out Anterior infarct, age undetermined Abnormal ECG
[2017-10-10 08:22] LABS: BLOOD UREA NITROGEN 16 mg/dL (9-20); CALCIUM 8.2 mg/dl (8.6-10.4); GFR AFRICAN-AMERICAN > 60; GFR NON-AFRICAN AMERICAN 56
[2017-10-10] MEDS: (Novolog) Insulin Aspart, Recombinant 100 u/ml 10 ml vial SC SCH ×4 (08:30→22:26)
[2017-10-10 08:55] LABS: B-TYPE NATRIURETIC PEPTIDE 4140 pg/mL (0-900)
[2017-10-10] MEDS: Ranolazine 500 mg Extended Release Tablets PO SCH ×2 (10:14→17:45)
--- NOTE | 2017-10-10 12:53 | CP.PCM.PN ---
Subjective - Date & Time of Evaluation Date of Evaluation: 10/10/17 Time of Evaluation: 12:51 - Subjective Subjective: CONDITION IMPROVING. LESS SOB. AMBULATING. CHEST X RAY IMPROVING. PRO BNP IMPROVING. BS OK. Objective - Vital Signs/Intake and Output Vital Signs (last 24 hours): Temp Pulse Resp BP Pulse Ox 98.0 F 67 18 104/62 95 10/10/17 07:25 10/10/17 07:25 10/10/17 07:25 10/10/17 10:20 10/10/17 07:25 Intake and Output: 10/10/17 10/10/17 06:59 18:59 Intake Total 1000 Balance 1000 - Medications Medications: Current Medications Amiodarone HCl (Cordarone) 200 mg PO Q12 [facility] Last Admin: 10/10/17 10:15 Dose: 200 mg Aspirin (Ecotrin) 81 mg PO DAILY [facility] Last Admin: 10/10/17 10:24 Dose: 81 mg Carvedilol (Coreg) 12.5 mg PO Q12 [facility] Last Admin: 10/10/17 10:20 Dose: Not Given Ciprofloxacin (Cipro) 500 mg PO BID [facility] PRN Reason: Protocol Last Admin: 10/10/17 10:15 Dose: 500 mg Enalapril Maleate (Vasotec) 10 mg PO DAILY [facility] Last Admin: 10/10/17 10:20 Dose: Not Given Famotidine (Pepcid) 20 mg PO DAILY [facility] Last Admin: 10/10/17 10:15 Dose: 20 mg Finasteride (Proscar) 5 mg PO DAILY [facility] Last Admin: 10/10/17 10:15 Dose: 5 mg Furosemide (Lasix) 40 mg IVP BID [facility] Last Admin: 10/10/17 10:15 Dose: 40 mg Gabapentin (Neurontin) 100 mg PO BID [facility] Last Admin: 10/10/17 10:15 Dose: 100 mg Heparin Sodium (Porcine) (Heparin) 5,000 units SC Q12 [facility] Last Admin: 10/10/17 10:15 Dose: 5,000 units Insulin Aspart (Novolog) 0 unit SC ACHS [facility] PRN Reason: Protocol Last Admin: 10/10/17 08:30 Dose: 2 unit Insulin Glargine (Lantus) 12 unit SC HS [facility] Last Admin: 10/09/17 21:54 Dose: 12 units Metformin HCl (Glucophage) 1,000 mg PO BIDCC [facility] Last Admin: 10/10/17 08:48 Dose: 1,000 mg Nitroglycerin (Nitrostat Sl Tab) 0.4 mg SL Q5MIN PRN PRN Reason: chest pain Ranolazine (Ranexa) 1,000 mg PO BID [facility] Last Admin: 10/10/17 10:14 Dose: 1,000 mg Rosuvastatin Calcium (Crestor) 40 mg PO HS [facility] Last Admin: 10/09/17 21:54 Dose: 40 mg Sitagliptin Phosphate (Januvia) 100 mg PO DAILY [facility] Last Admin: 10/10/17 10:14 Dose: 100 mg Sodium Chloride (Sodium Chloride Tab) 1 gm PO MWF [facility] Last Admin: 10/09/17 18:50 Dose: 1 gm Spironolactone (Aldactone) 25 mg PO BID [facility] Last Admin: 10/10/17 10:15 Dose: 25 mg Tamsulosin HCl (Flomax) 0.4 mg PO BID [facility] Last Admin: 10/10/17 10:24 Dose: 0.4 mg Ticagrelor (Brilinta) 90 mg PO BID [facility] Last Admin: 10/10/17 10:14 Dose: 90 mg - Labs Labs: 10/08/17 17:36 10/10/17 07:53 PT 15.0 SECONDS (9.7-12.2) H 10/08/17 17:36 INR 1.3 10/08/17 17:36 APTT 23 SECONDS (21-34) 10/08/17 17:36 - Constitutional Appears: No Acute Distress, Chronically Ill - Eye Exam Eye Exam: EOMI, Normal appearance, PERRL Pupil Exam: NORMAL ACCOMODATION, PERRL - ENT Exam ENT Exam: Mucous Membranes Moist, Normal Exam - Neck Exam Neck Exam: Full ROM, Normal Inspection. absent: Lymphadenopathy - Respiratory Exam Respiratory Exam: Clear to Ausculation Bilateral, NORMAL BREATHING PATTERN - Cardiovascular Exam Cardiovascular Exam: REGULAR RHYTHM, +S1, +S2. absent: Murmur - GI/Abdominal Exam GI & Abdominal Exam: Soft, Normal Bowel Sounds. absent: Tenderness - Extremities Exam Extremities Exam: Full ROM, Normal Capillary Refill, Normal Inspection. absent : Joint Swelling, Pedal Edema - Neurological Exam Neurological Exam: Alert, Awake, CN II-XII Intact, Normal Gait, Oriented x3 - Psychiatric Exam Psychiatric exam: Normal Affect, Normal Mood Assessment and Plan - Assessment and Plan (Free Text) Assessment: ACUTE PUL OEDEMA. CAD. UTI [facility]. Plan: CT DIURETICS. D/C TELE.
[2017-10-10] MEDS: (Lantus) Insulin Glargine, Recombinant SC SCH (22:23)
[2017-10-11] MEDS: (Novolog) Insulin Aspart, Recombinant 100 u/ml 10 ml vial SC SCH ×4 (08:45→21:20)
[2017-10-11] MEDS: Ranolazine 500 mg Extended Release Tablets PO SCH ×2 (09:44→17:43)
[2017-10-11 15:58] LABS: BASO % 0.6 % (0.0-2.0); EOS # 0.2 K/uL (0.0-0.7); EOS % 3.4 % (0.0-4.0); HEMOGLOBIN 10.6 g/dL (12.0-18.0); LYMPH # 1.6 K/uL (1.0-4.3); LYMPH % 22.4 % (20.0-40.0); MEAN CELL VOLUME 91.9 fL (80.0-94.0); MEAN CORPUSCULAR HEMOGLOBIN 30.5 pg (27.0-31.0); MEAN CORPUSCULAR HGB CONC 33.2 g/dL (33.0-37.0); MEAN PLATELET VOLUME 7.5 fL (7.2-11.7); MONO # 0.8 K/uL (0.0-0.8); MONO % 10.7 % (0.0-10.0); NEUT # 4.6 K/uL (1.8-7.0); NEUT % 62.9 % (50.0-75.0); RBC 3.47 Mil/uL (4.40-5.90); RED CELL DISTRIBUTION WIDTH 18.4 % (11.5-14.5); WHITE BLOOD COUNT 7.3 K/uL (4.8-10.8)
[2017-10-11 16:18] LABS: BLOOD UREA NITROGEN 17 mg/dL (9-20); CALCIUM 8.8 mg/dl (8.6-10.4); GFR AFRICAN-AMERICAN > 60; GFR NON-AFRICAN AMERICAN > 60
--- NOTE | 2017-10-11 18:05 | PCM.HF ---
Heart Failure Core Measure - Heart Failure Ejection Fraction: 40 % or Greater ALFRED Inhibitor Prescribed: Yes Beta-Ken Prescribed: Carvedilol
--- NOTE | 2017-10-11 18:06 | CP.PCM.PN ---
Subjective - Date & Time of Evaluation Date of Evaluation: 10/11/17 Time of Evaluation: 11:00 - Subjective Subjective: Alert and oriented x3, no chest pain or acute distress noted. Objective - Vital Signs/Intake and Output Vital Signs (last 24 hours): Temp Pulse Resp BP Pulse Ox 97.3 F L 62 20 109/66 95 10/11/17 15:38 10/11/17 15:38 10/11/17 15:38 10/11/17 17:43 10/11/17 15:38 Intake and Output: 10/11/17 10/11/17 06:59 18:59 Intake Total 800 830 Balance 800 830 - Medications Medications: Current Medications Amiodarone HCl (Cordarone) 200 mg PO Q12 [facility] Last Admin: 10/11/17 09:44 Dose: 200 mg Aspirin (Ecotrin) 81 mg PO DAILY [facility] Last Admin: 10/11/17 09:43 Dose: 81 mg Carvedilol (Coreg) 12.5 mg PO Q12 [facility] Last Admin: 10/11/17 09:44 Dose: 12.5 mg Enalapril Maleate (Vasotec) 10 mg PO DAILY [facility] Last Admin: 10/11/17 09:44 Dose: 10 mg Famotidine (Pepcid) 20 mg PO DAILY [facility] Last Admin: 10/11/17 09:44 Dose: 20 mg Finasteride (Proscar) 5 mg PO DAILY [facility] Last Admin: 10/11/17 09:44 Dose: 5 mg Furosemide (Lasix) 40 mg IVP BID [facility] Last Admin: 10/11/17 17:43 Dose: 40 mg Gabapentin (Neurontin) 100 mg PO BID [facility] Last Admin: 10/11/17 17:43 Dose: 100 mg Heparin Sodium (Porcine) (Heparin) 5,000 units SC Q12 [facility] Last Admin: 10/11/17 09:45 Dose: 5,000 units Insulin Aspart (Novolog) 0 unit SC ACHS [facility] PRN Reason: Protocol Last Admin: 10/11/17 17:41 Dose: 3 unit Insulin Glargine (Lantus) 12 unit SC HS [facility] Last Admin: 10/10/17 22:23 Dose: 12 units Metformin HCl (Glucophage) 1,000 mg PO BIDCC [facility] Last Admin: 10/11/17 17:43 Dose: 1,000 mg Nitrofurantoin Macrocrystals (Macrobid) 100 mg PO Q12H [facility] PRN Reason: Protocol Last Admin: 10/11/17 12:14 Dose: 100 mg Nitroglycerin (Nitrostat Sl Tab) 0.4 mg SL Q5MIN PRN PRN Reason: chest pain Ranolazine (Ranexa) 1,000 mg PO BID [facility] Last Admin: 10/11/17 17:43 Dose: 1,000 mg Rosuvastatin Calcium (Crestor) 40 mg PO HS [facility] Last Admin: 10/10/17 22:23 Dose: 40 mg Sitagliptin Phosphate (Januvia) 100 mg PO DAILY [facility] Last Admin: 10/11/17 09:43 Dose: 100 mg Sodium Chloride (Sodium Chloride Tab) 1 gm PO MWF [facility] Last Admin: 10/11/17 08:45 Dose: 1 gm Spironolactone (Aldactone) 25 mg PO BID [facility] Last Admin: 10/11/17 17:43 Dose: 25 mg Tamsulosin HCl (Flomax) 0.4 mg PO BID [facility] Last Admin: 10/11/17 17:43 Dose: 0.4 mg Ticagrelor (Brilinta) 90 mg PO BID [facility] Last Admin: 10/11/17 17:43 Dose: 90 mg - Labs Labs: 10/11/17 15:53 10/11/17 15:53 PT 15.0 SECONDS (9.7-12.2) H 10/08/17 17:36 INR 1.3 10/08/17 17:36 APTT 23 SECONDS (21-34) 10/08/17 17:36 Assessment and Plan - Assessment and Plan (Free Text) Assessment: Patient is seen and examined. No sob or chest pain. Cleared by DR Grover. labs repeated, sodium within normal limits. Patient is complaining of dizziness now. Will monitor closely, follow up with DR Latrell Grover later if stable for discharge.
--- NOTE | 2017-10-11 18:50 | CP.PCM.PN ---
Subjective - Date & Time of Evaluation Date of Evaluation: 10/11/17 Time of Evaluation: 12:00 - Subjective Subjective: PT SEEN AND EXAMINED. C/O MILD DIZZINESS AND HAS VOMITING THIS AM. VS WNL. NO SOB. NO CHEST PAIN. LABS WERE REPEATED. NA 132. Objective - Vital Signs/Intake and Output Vital Signs (last 24 hours): Temp Pulse Resp BP Pulse Ox 97.3 F L 62 20 109/66 95 10/11/17 15:38 10/11/17 15:38 10/11/17 15:38 10/11/17 17:43 10/11/17 15:38 Intake and Output: 10/11/17 10/11/17 06:59 18:59 Intake Total 800 830 Balance 800 830 - Medications Medications: Current Medications Amiodarone HCl (Cordarone) 200 mg PO Q12 [facility] Last Admin: 10/11/17 09:44 Dose: 200 mg Aspirin (Ecotrin) 81 mg PO DAILY [facility] Last Admin: 10/11/17 09:43 Dose: 81 mg Carvedilol (Coreg) 12.5 mg PO Q12 [facility] Last Admin: 10/11/17 09:44 Dose: 12.5 mg Enalapril Maleate (Vasotec) 10 mg PO DAILY [facility] Last Admin: 10/11/17 09:44 Dose: 10 mg Famotidine (Pepcid) 20 mg PO DAILY [facility] Last Admin: 10/11/17 09:44 Dose: 20 mg Finasteride (Proscar) 5 mg PO DAILY [facility] Last Admin: 10/11/17 09:44 Dose: 5 mg Furosemide (Lasix) 40 mg IVP BID [facility] Last Admin: 10/11/17 17:43 Dose: 40 mg Gabapentin (Neurontin) 100 mg PO BID [facility] Last Admin: 10/11/17 17:43 Dose: 100 mg Heparin Sodium (Porcine) (Heparin) 5,000 units SC Q12 [facility] Last Admin: 10/11/17 09:45 Dose: 5,000 units Insulin Aspart (Novolog) 0 unit SC ACHS [facility] PRN Reason: Protocol Last Admin: 10/11/17 17:41 Dose: 3 unit Insulin Glargine (Lantus) 12 unit SC HS [facility] Last Admin: 10/10/17 22:23 Dose: 12 units Metformin HCl (Glucophage) 1,000 mg PO BIDCC [facility] Last Admin: 10/11/17 17:43 Dose: 1,000 mg Nitrofurantoin Macrocrystals (Macrobid) 100 mg PO Q12H [facility] PRN Reason: Protocol Last Admin: 10/11/17 12:14 Dose: 100 mg Nitroglycerin (Nitrostat Sl Tab) 0.4 mg SL Q5MIN PRN PRN Reason: chest pain Ranolazine (Ranexa) 1,000 mg PO BID [facility] Last Admin: 10/11/17 17:43 Dose: 1,000 mg Rosuvastatin Calcium (Crestor) 40 mg PO HS [facility] Last Admin: 10/10/17 22:23 Dose: 40 mg Sitagliptin Phosphate (Januvia) 100 mg PO DAILY [facility] Last Admin: 10/11/17 09:43 Dose: 100 mg Sodium Chloride (Sodium Chloride Tab) 1 gm PO MWF [facility] Last Admin: 10/11/17 08:45 Dose: 1 gm Spironolactone (Aldactone) 25 mg PO BID [facility] Last Admin: 10/11/17 17:43 Dose: 25 mg Tamsulosin HCl (Flomax) 0.4 mg PO BID [facility] Last Admin: 10/11/17 17:43 Dose: 0.4 mg Ticagrelor (Brilinta) 90 mg PO BID [facility] Last Admin: 10/11/17 17:43 Dose: 90 mg - Labs Labs: 10/11/17 15:53 10/11/17 15:53 PT 15.0 SECONDS (9.7-12.2) H 10/08/17 17:36 INR 1.3 10/08/17 17:36 APTT 23 SECONDS (21-34) 10/08/17 17:36 - Constitutional Appears: No Acute Distress, Chronically Ill - Head Exam Head Exam: ATRAUMATIC, NORMAL INSPECTION, NORMOCEPHALIC - Eye Exam Eye Exam: EOMI, Normal appearance, PERRL Pupil Exam: NORMAL ACCOMODATION, PERRL - ENT Exam ENT Exam: Mucous Membranes Moist, Normal Exam - Neck Exam Neck Exam: Full ROM, Normal Inspection. absent: Lymphadenopathy - Respiratory Exam Respiratory Exam: Clear to Ausculation Bilateral, NORMAL BREATHING PATTERN - Cardiovascular Exam Cardiovascular Exam: REGULAR RHYTHM, +S1, +S2. absent: Murmur - GI/Abdominal Exam GI & Abdominal Exam: Soft, Normal Bowel Sounds. absent: Tenderness - Extremities Exam Extremities Exam: Full ROM, Normal Capillary Refill, Normal Inspection. absent : Joint Swelling, Pedal Edema - Back Exam Back Exam: NORMAL INSPECTION - Neurological Exam Neurological Exam: Alert, Awake, CN II-XII Intact, Normal Gait, Oriented x3 - Psychiatric Exam Psychiatric exam: Normal Affect, Normal Mood Assessment and Plan - Assessment and Plan (Free Text) Assessment: PUL OEDEMA. CAD. DM. Plan: PT WAS GOING TO BE DISCHARGED EARLIER BUT SINCE HE HAS SYMPTOMATIC DIZZINESS, WILL OBSERVE AND DISCHARGE HOME TOMORROW. CT OTHER TREATMENT.
[2017-10-11] MEDS: (Lantus) Insulin Glargine, Recombinant SC SCH (21:26)
[2017-10-12] MEDS: (Novolog) Insulin Aspart, Recombinant 100 u/ml 10 ml vial SC SCH ×4 (08:17→21:19)
[2017-10-12] MEDS: Ranolazine 500 mg Extended Release Tablets PO SCH ×2 (10:06→17:19)
--- NOTE | 2017-10-12 13:07 | CP.PCM.PN ---
Subjective - Date & Time of Evaluation Date of Evaluation: 10/12/17 Time of Evaluation: 13:04 - Subjective Subjective: PT APPEARS NORMAL BUT C/O DIZZINESS. NO VOMITING. NO CHEST PAIN. PT WAS FOR DISCHARGE HOME BUT REFUSES TO GO BECAUSE HE CAN NOT CLIMB 2 FLIGHTS. ASKING FOR REHAB. Objective - Vital Signs/Intake and Output Vital Signs (last 24 hours): Temp Pulse Resp BP Pulse Ox 97.9 F 68 18 100/61 97 10/12/17 07:25 10/12/17 07:25 10/12/17 07:25 10/12/17 10:09 10/12/17 07:25 Intake and Output: 10/12/17 10/12/17 06:59 18:59 Intake Total 600 Balance 600 - Medications Medications: Current Medications Amiodarone HCl (Cordarone) 200 mg PO Q12 [facility] Last Admin: 10/12/17 10:06 Dose: 200 mg Aspirin (Ecotrin) 81 mg PO DAILY [facility] Last Admin: 10/12/17 10:07 Dose: 81 mg Carvedilol (Coreg) 12.5 mg PO Q12 [facility] Last Admin: 10/12/17 10:09 Dose: Not Given Enalapril Maleate (Vasotec) 10 mg PO DAILY [facility] Last Admin: 10/12/17 10:09 Dose: Not Given Famotidine (Pepcid) 20 mg PO DAILY [facility] Last Admin: 10/12/17 10:06 Dose: 20 mg Finasteride (Proscar) 5 mg PO DAILY [facility] Last Admin: 10/12/17 10:07 Dose: 5 mg Furosemide (Lasix) 40 mg IVP BID [facility] Last Admin: 10/12/17 10:07 Dose: 40 mg Gabapentin (Neurontin) 100 mg PO BID [facility] Last Admin: 10/12/17 10:06 Dose: 100 mg Insulin Aspart (Novolog) 0 unit SC ACHS [facility] PRN Reason: Protocol Last Admin: 10/12/17 08:17 Dose: Not Given Insulin Glargine (Lantus) 12 unit SC HS [facility] Last Admin: 10/11/17 21:26 Dose: 12 units Metformin HCl (Glucophage) 1,000 mg PO BIDCC [facility] Last Admin: 10/12/17 08:47 Dose: 1,000 mg Nitrofurantoin Macrocrystals (Macrobid) 100 mg PO Q12H [facility] PRN Reason: Protocol Last Admin: 10/12/17 00:28 Dose: 100 mg Nitroglycerin (Nitrostat Sl Tab) 0.4 mg SL Q5MIN PRN PRN Reason: chest pain Ranolazine (Ranexa) 1,000 mg PO BID [facility] Last Admin: 10/12/17 10:06 Dose: 1,000 mg Rosuvastatin Calcium (Crestor) 40 mg PO HS [facility] Last Admin: 10/11/17 21:26 Dose: 40 mg Sitagliptin Phosphate (Januvia) 100 mg PO DAILY [facility] Last Admin: 10/12/17 10:07 Dose: 100 mg Sodium Chloride (Sodium Chloride Tab) 1 gm PO MWF [facility] Last Admin: 10/11/17 08:45 Dose: 1 gm Spironolactone (Aldactone) 25 mg PO BID [facility] Last Admin: 10/12/17 10:06 Dose: 25 mg Tamsulosin HCl (Flomax) 0.4 mg PO BID [facility] Last Admin: 10/12/17 10:06 Dose: 0.4 mg Ticagrelor (Brilinta) 90 mg PO BID [facility] Last Admin: 10/12/17 10:06 Dose: 90 mg - Labs Labs: 10/11/17 15:53 10/11/17 15:53 PT 15.0 SECONDS (9.7-12.2) H 10/08/17 17:36 INR 1.3 10/08/17 17:36 APTT 23 SECONDS (21-34) 10/08/17 17:36 - Constitutional Appears: No Acute Distress, Chronically Ill - Eye Exam Eye Exam: EOMI, Normal appearance, PERRL Pupil Exam: NORMAL ACCOMODATION, PERRL - ENT Exam ENT Exam: Mucous Membranes Moist, Normal Exam - Neck Exam Neck Exam: Full ROM, Normal Inspection. absent: Lymphadenopathy - Respiratory Exam Respiratory Exam: Clear to Ausculation Bilateral, NORMAL BREATHING PATTERN - Cardiovascular Exam Cardiovascular Exam: REGULAR RHYTHM, +S1, +S2. absent: Murmur - GI/Abdominal Exam GI & Abdominal Exam: Soft, Normal Bowel Sounds. absent: Tenderness - Extremities Exam Extremities Exam: Full ROM, Normal Capillary Refill, Normal Inspection. absent : Joint Swelling, Pedal Edema - Neurological Exam Neurological Exam: Alert, Awake, CN II-XII Intact, Normal Gait, Oriented x3 - Psychiatric Exam Psychiatric exam: Normal Affect, Normal Mood Assessment and Plan - Assessment and Plan (Free Text) Assessment: S/P CHF. CAD. Plan: FOR SUBACUTE REHAB. CT OTHER TREATMENT.
[2017-10-12] MEDS: (Lantus) Insulin Glargine, Recombinant SC SCH (21:24)
[2017-10-13] MEDS: (Novolog) Insulin Aspart, Recombinant 100 u/ml 10 ml vial SC SCH ×4 (08:37→21:56)
[2017-10-13] MEDS: Ranolazine 500 mg Extended Release Tablets PO SCH ×2 (10:21→17:47)
--- NOTE | 2017-10-13 12:08 | CP.PCM.PN ---
Subjective - Date & Time of Evaluation Date of Evaluation: 10/13/17 Time of Evaluation: 12:06 - Subjective Subjective: CONDITION REMAINS SAME. MILD DIZZINESS. NO CP. VS WNL. Objective - Vital Signs/Intake and Output Vital Signs (last 24 hours): Temp Pulse Resp BP Pulse Ox 97.6 F 65 18 119/62 98 10/13/17 07:00 10/13/17 07:00 10/13/17 07:00 10/13/17 10:26 10/13/17 07:00 Intake and Output: 10/13/17 10/13/17 06:59 18:59 Intake Total 500 Balance 500 - Medications Medications: Current Medications Amiodarone HCl (Cordarone) 200 mg PO Q12 [facility] Last Admin: 10/13/17 10:22 Dose: 200 mg Aspirin (Ecotrin) 81 mg PO DAILY [facility] Last Admin: 10/13/17 10:21 Dose: 81 mg Carvedilol (Coreg) 12.5 mg PO Q12 [facility] Last Admin: 10/13/17 10:26 Dose: 12.5 mg Enalapril Maleate (Vasotec) 10 mg PO DAILY [facility] Last Admin: 10/13/17 10:26 Dose: 10 mg Famotidine (Pepcid) 20 mg PO DAILY [facility] Last Admin: 10/13/17 10:21 Dose: 20 mg Finasteride (Proscar) 5 mg PO DAILY [facility] Last Admin: 10/13/17 10:22 Dose: 5 mg Furosemide (Lasix) 40 mg IVP BID [facility] Last Admin: 10/13/17 10:26 Dose: 40 mg Gabapentin (Neurontin) 100 mg PO BID [facility] Last Admin: 10/13/17 10:21 Dose: 100 mg Insulin Aspart (Novolog) 0 unit SC ACHS [facility] PRN Reason: Protocol Last Admin: 10/13/17 08:37 Dose: 2 unit Insulin Glargine (Lantus) 12 unit SC HS [facility] Last Admin: 10/12/17 21:24 Dose: 12 units [facility] Admin: 10/13/17 08:37 Dose: 1,000 mg Nitrofurantoin Macrocrystals (Macrobid) 100 mg PO Q12H [facility] PRN Reason: Protocol Last Admin: 10/13/17 02:04 Dose: 100 mg Nitroglycerin (Nitrostat Sl Tab) 0.4 mg SL Q5MIN PRN PRN Reason: chest pain Ranolazine (Ranexa) 1,000 mg PO BID [facility] Last Admin: 10/13/17 10:21 Dose: 1,000 mg Rosuvastatin Calcium (Crestor) 40 mg PO HS [facility] Last Admin: 10/12/17 21:25 Dose: 40 mg Sitagliptin Phosphate (Januvia) 100 mg PO DAILY [facility] Last Admin: 10/13/17 10:21 Dose: 100 mg Sodium Chloride (Sodium Chloride Tab) 1 gm PO MWF [facility] Last Admin: 10/13/17 09:21 Dose: 1 gm Spironolactone (Aldactone) 25 mg PO BID [facility] Last Admin: 10/13/17 10:21 Dose: 25 mg Tamsulosin HCl (Flomax) 0.4 mg PO BID [facility] Last Admin: 10/13/17 10:21 Dose: 0.4 mg Ticagrelor (Brilinta) 90 mg PO BID [facility] Last Admin: 10/13/17 10:21 Dose: 90 mg - Labs Labs: 10/11/17 15:53 10/11/17 15:53 PT 15.0 SECONDS (9.7-12.2) H 10/08/17 17:36 INR 1.3 10/08/17 17:36 APTT 23 SECONDS (21-34) 10/08/17 17:36 - Constitutional Appears: No Acute Distress, Chronically Ill - Head Exam Head Exam: ATRAUMATIC, NORMAL INSPECTION, NORMOCEPHALIC - Eye Exam Eye Exam: EOMI, Normal appearance, PERRL Pupil Exam: NORMAL ACCOMODATION, PERRL - ENT Exam ENT Exam: Mucous Membranes Moist, Normal Exam - Neck Exam Neck Exam: Full ROM, Normal Inspection. absent: Lymphadenopathy - Respiratory Exam Respiratory Exam: Clear to Ausculation Bilateral, NORMAL BREATHING PATTERN - Cardiovascular Exam Cardiovascular Exam: REGULAR RHYTHM, +S1, +S2. absent: Murmur - GI/Abdominal Exam GI & Abdominal Exam: Soft, Normal Bowel Sounds. absent: Tenderness - Extremities Exam Extremities Exam: Full ROM, Normal Capillary Refill, Normal Inspection. absent : Joint Swelling, Pedal Edema - Neurological Exam Neurological Exam: Alert, Awake, CN II-XII Intact, Normal Gait, Oriented x3 Assessment and Plan - Assessment and Plan (Free Text) Assessment: CHF IMPROVING. Plan: FOR ELLEN. AWAITING APPROVAL FROM [facility]. LABS ORDERED.
[2017-10-13] MEDS: (Lantus) Insulin Glargine, Recombinant SC SCH (22:54)
[2017-10-14 07:55] LABS: BASO % 0.5 % (0.0-2.0); EOS # 0.3 K/uL (0.0-0.7); HEMOGLOBIN 10.7 g/dL (12.0-18.0); LYMPH # 1.5 K/uL (1.0-4.3); LYMPH % 21.2 % (20.0-40.0); MEAN CELL VOLUME 91.4 fL (80.0-94.0); MEAN CORPUSCULAR HEMOGLOBIN 30.6 pg (27.0-31.0); MEAN CORPUSCULAR HGB CONC 33.4 g/dL (33.0-37.0); MEAN PLATELET VOLUME 7.3 fL (7.2-11.7); MONO # 0.7 K/uL (0.0-0.8); MONO % 9.9 % (0.0-10.0); NEUT # 4.6 K/uL (1.8-7.0); NEUT % 64.4 % (50.0-75.0); RBC 3.51 Mil/uL (4.40-5.90); RED CELL DISTRIBUTION WIDTH 17.5 % (11.5-14.5); WHITE BLOOD COUNT 7.1 K/uL (4.8-10.8)
[2017-10-14] MEDS: (Novolog) Insulin Aspart, Recombinant 100 u/ml 10 ml vial SC SCH ×2 (08:29→12:25)
[2017-10-14 09:41] LABS: BLOOD UREA NITROGEN 23 mg/dL (9-20); CALCIUM 8.7 mg/dl (8.6-10.4); GFR AFRICAN-AMERICAN > 60; GFR NON-AFRICAN AMERICAN 51
[2017-10-14 09:50] VITALS: BP 108/66
[2017-10-14] MEDS: Ranolazine 500 mg Extended Release Tablets PO SCH (10:07)
--- NOTE | 2017-10-14 10:52 | CP.PCM.PN ---
Subjective - Date & Time of Evaluation Date of Evaluation: 10/14/17 Time of Evaluation: 10:49 - Subjective Subjective: CONDITION STABLE. NA 130. NO SOB. Objective - Vital Signs/Intake and Output Vital Signs (last 24 hours): Temp Pulse Resp BP Pulse Ox 97.7 F 59 L 20 108/66 97 10/13/17 23:50 10/13/17 23:50 10/13/17 23:50 10/14/17 10:08 10/13/17 23:50 - Medications Medications: Current Medications Amiodarone HCl (Cordarone) 200 mg PO Q12 [facility] Last Admin: 10/14/17 10:19 Dose: 200 mg Aspirin (Ecotrin) 81 mg PO DAILY [facility] Last Admin: 10/14/17 10:09 Dose: 81 mg Carvedilol (Coreg) 12.5 mg PO Q12 [facility] Last Admin: 10/14/17 10:08 Dose: 12.5 mg Enalapril Maleate (Vasotec) 10 mg PO DAILY [facility] Last Admin: 10/14/17 09:51 Dose: Not Given Famotidine (Pepcid) 20 mg PO DAILY [facility] Last Admin: 10/14/17 09:43 Dose: 20 mg Finasteride (Proscar) 5 mg PO DAILY [facility] Last Admin: 10/14/17 09:50 Dose: 5 mg Furosemide (Lasix) 40 mg IVP BID [facility] Last Admin: 10/14/17 09:50 Dose: 40 mg Gabapentin (Neurontin) 100 mg PO BID [facility] Last Admin: 10/14/17 09:51 Dose: 100 mg Insulin Aspart (Novolog) 0 unit SC ACHS [facility] PRN Reason: Protocol Last Admin: 10/14/17 08:29 Dose: 2 unit Insulin Glargine (Lantus) 12 unit SC HS [facility] Last Admin: 10/13/17 22:54 Dose: 12 units Metformin HCl (Glucophage) 1,000 mg PO BIDCC [facility] Last Admin: 10/14/17 08:29 Dose: 1,000 mg Nitrofurantoin Macrocrystals (Macrobid) 100 mg PO Q12H [facility] PRN Reason: Protocol Last Admin: 10/14/17 00:30 Dose: 100 mg Nitroglycerin (Nitrostat Sl Tab) 0.4 mg SL Q5MIN PRN PRN Reason: chest pain Ranolazine (Ranexa) 1,000 mg PO BID [facility] Last Admin: 10/14/17 10:07 Dose: 1,000 mg Rosuvastatin Calcium (Crestor) 40 mg PO HS [facility] Last Admin: 10/13/17 22:54 Dose: 40 mg Sitagliptin Phosphate (Januvia) 100 mg PO DAILY [facility] Last Admin: 10/14/17 09:42 Dose: 100 mg Sodium Chloride (Sodium Chloride Tab) 1 gm PO MWF [facility] Last Admin: 10/13/17 09:21 Dose: 1 gm Spironolactone (Aldactone) 25 mg PO BID [facility] Last Admin: 10/14/17 10:23 Dose: 25 mg Tamsulosin HCl (Flomax) 0.4 mg PO BID [facility] Last Admin: 10/14/17 10:19 Dose: 0.4 mg Ticagrelor (Brilinta) 90 mg PO BID [facility] Last Admin: 10/14/17 10:08 Dose: 90 mg - Labs Labs: 10/14/17 07:49 10/14/17 07:49 PT 15.0 SECONDS (9.7-12.2) H 10/08/17 17:36 INR 1.3 10/08/17 17:36 APTT 23 SECONDS (21-34) 10/08/17 17:36 - Constitutional Appears: No Acute Distress, Chronically Ill - Eye Exam Eye Exam: EOMI, Normal appearance, PERRL Pupil Exam: NORMAL ACCOMODATION, PERRL - ENT Exam ENT Exam: Mucous Membranes Moist, Normal Exam - Neck Exam Neck Exam: Full ROM, Normal Inspection. absent: Lymphadenopathy - Respiratory Exam Respiratory Exam: Clear to Ausculation Bilateral, NORMAL BREATHING PATTERN - Cardiovascular Exam Cardiovascular Exam: REGULAR RHYTHM, +S1, +S2. absent: Murmur - GI/Abdominal Exam GI & Abdominal Exam: Soft, Normal Bowel Sounds. absent: Tenderness - Extremities Exam Extremities Exam: Full ROM, Normal Capillary Refill, Normal Inspection. absent : Joint Swelling, Pedal Edema - Back Exam Back Exam: NORMAL INSPECTION - Neurological Exam Neurological Exam: Alert, Awake, CN II-XII Intact, Normal Gait, Oriented x3 - Psychiatric Exam Psychiatric exam: Normal Affect, Normal Mood Assessment and Plan - Assessment and Plan (Free Text) Assessment: CHF SYSTOLIC AND DIASTOLIC DYSTOLIC DYSFUNCTION. Plan: ELLEN DENIED. D/C HOME. SAME MEDS.
[2017-10-14 10:56] VITALS: PULSE 62; RESP 18; TEMP 97.8; O2SAT 96
--- NOTE | 2017-10-14 10:59 | PCM.HF ---
Heart Failure Core Measure - Heart Failure Ejection Fraction: Less Than 40 % ALFRED Inhibitor Prescribed: No Contraindication/Reason for not providing: ARF Beta-Ken Prescribed: Carvedilol Angiotensin II Receptor Ken Prescribed: No Contraindication/Reason for not providing: risk for hyperkalemia AnticoagulationTherapy for Atrial Fibrillation/Atrialflutter: No Contraindication/Reason for not providing: no hx of afib Aldosterone Antagonist Prescribed: Yes Hydralazine Nitrate Prescribed: No Contraindication/Reason for not providing: on amiodorone Implantable Cardioverter Defibrillator Therapy: No Contraindication/Reason for not providing: pt has pacemaker Cardiac Resynchronization Therapy Prescribed: No Contraindication/Reason for not providing: NSR/ pt has pacemaker - Follow up Will be discharged to: Home Follow Up Date (must be within 7 days from discharge): 10/17/17 Follow Up Time: 09:00
--- NOTE | 2017-10-19 10:29 | DS ---
HISTORY OF PRESENT ILLNESS: This is a 62-year-old male came to the emergency room history of increasing shortness of breath and cough. The patient has dizziness. The patient has dyspnea on exertion. The patient is chronically ill with history of severe coronary artery disease and stent kept and the patient also has bypass surgery done in the past. His past history is also consistent with benign prostatic hyperplasia, diabetes, hypertension, hypercholesterolemia. MEDICATIONS: Reviewed by me. PHYSICAL EXAMINATION: VITAL SIGNS: On admission, the patient was tachypneic, dyspneic, with blood pressure 186/94 mmHg and other vital signs were within normal limit. Pulse ox 100% at room air. NECK: JVP, flat. Carotids, no bruit. LUNGS: Bilateral rales present. HEART: S1, S2 normal. Tachycardiac. No gallop, no murmur. ABDOMEN: Soft, nontender. No organomegaly. STUDENT SERVICES REP: No focal neurological deficits. EXTREMITIES: Mild edema of the leg present. LABORATORY DATA: On admission, lab work showed hemoglobin 10.1. Blood sugar 265. Other workup was negative. EKG showed sinus tachycardia. HOSPITAL COURSE: During the hospital course, the patient was treated with IV Lasix. The patient continued to improve. The patient has also history of hyponatremia for which sodium supplement was given. The patient improved slowly. The patient was stabilized and discharged home. FINAL DIAGNOSES: Acute pulmonary edema, congestive heart failure systolic and diastolic dysfunction, accelerated hypertension, coronary artery disease and diabetes mellitus. Sheyla Grover MD
== END 2017-10-14 15:08 | disposition home or self-care (01) | DRG 127 ==
LOC: C.ER 17:15 → C.9E 20:09 → C.5S 10-09 06:49
PROVIDERS: ADMIT Internal Medicine; ATTEND Internal Medicine
DX: I11.0 Hypertensive heart disease with heart failure (principal); N39.0 Urinary tract infection, site not specified; E87.1 Hypo-osmolality and hyponatremia; I50.43 Acute on chronic combined systolic (congestive) and diastolic (congestive) heart failure; I25.10 Atherosclerotic heart disease of native coronary artery without angina pectoris; E78.00 Pure hypercholesterolemia, unspecified; N40.0 Benign prostatic hyperplasia without lower urinary tract symptoms; Z95.1 Presence of aortocoronary bypass graft; Z95.5 Presence of coronary angioplasty implant and graft; E11.9 Type 2 diabetes mellitus without complications